=== PATIENT | male | born 1965 | race Caucasian/White ===

== ENCOUNTER 2025-06-30 13:31 | Outpatient (AMB) | payer BC, SELFPAY ==
--- OUTSIDE RECORDS SUMMARY | 2024-10-16 12:00 | XMS_ITS ---
Author Name [facility] Organization [facility] Address [address] [place] [id number] Care Team Providers Care Service Liaison Representative Name Role Phone BENITO MORRIS Primary Care [...] Name Patient's Relationship to Policy [employer] POLIS H NATIO NAL [facility] Dec 13, 2018 [id number] [employer] OTHER RELATIONSHIP Selected Encounter This section includes the information on record at [facility] for the Encounter. Date/Time Encounter Type Encounter Description Reason Provider Source Oct 16, 2024 04:00 PM TYMPANOMETRY AUDIOLOGY ICD-10-CM H90.3 Sensorineural hearing loss, bilateral AGUIAR,KIMBERL Y EFRAIN E Encounter Template Text not used by [place] Assessments - Encounter Diagnoses This section includes the primary and secondary diagnoses documented for the Encounter. Date/Time Primary/Secondary Diagnosis Diagnosis Name Provider Source Oct 16, 2024 04:23 PM PRIMARY Sensorineural hearing loss, bilateral AGUIAR[facility]KIM[facility]L [facility] [place] [facility] Oct 16, 2024 04:23 PM SECONDARY Tinnitus, bilateral AGUIAR,LISAL Y EFRAIN [facility] Plan of Treatment: Future Appointments (+ 6 months) and Future Tests (+/- 45 days) The Plan of Treatment section includes [facility] care activities for the [facility] This section includes future appointments and future orders which are active, pending or scheduled. Future Appointments This section includes appointments that were scheduled to occur 6 months from the date of the Encounter, up to a maximum of 20 appointments. The data comes from all [facility]. Appointment Date/Time Appointment Type Appointme nt Facility Name Oct 23, 2024 11:30 AM AMBULATORY - MEDICINE [facility] Nov 17, 2024 02:30 PM AMBULATORY MEDICINE [facility] Nov 17, 2024 03:00 PM AMBULATORY - MEDICINE [facility] Dec 30, 2024 03:00 PM AMBULATORY MEDICINE [facility] Active, Pending, and Scheduled Orders This section includes a listing of several types of active, pending, and scheduled orders, including clinic medications orders, diagnostic test orders, procedure orders and consult orders; where the start date of the order is 45 days before the date of the Encounter or 45 days after the date of theEncounter. The data comes from all [facility]. Test Date/Time Test Type Test Details Facility Name Nov 17, 2024 12:00 AM Laboratory - Chemistry Order HEMOGLOBIN A1C PANEL BLOOD (LAV-BLOOD) [facility] Nov 17, 2024 12:00 AM Laboratory - Chemistry Order URINALYSIS URINE [facility] Nov 17, 2024 12:00 AM Laboratory - Chemistry Order MICROALBUMIN CREATININE RATIO PANEL URINE (RANDOM) [facility] Nov 17, 2024 12:00 AM Laboratory - Chemistry Order TSH BLOOD (SST-SERUM) [facility] Nov 26, 2024 12:00 AM Laboratory - Chemistry Order OCCULT BLOOD FIT X1 SCREEN (MFP ONLY) STOOL FECES [facility] Lab Results: +/- 30 days of the encounter This section includes the Chemistry and Hematology Lab Results on record with [facility] for the patient. Radiology Reports and Pathology Reports are provided separately, in subsequent sections. Lab Results This section contains the Chemistry/Hematology Results that were resulted 30 days before or 30 daysafter the date of the Encounter. Date/Time Source Result Type Result - Unit Interpretation Reference Range Specimen Type Comment Nov 07, 2024 09:53 AM [facility] HIV 1&2 Ag/Ab SCREEN SERUM Specimen Type: SERUM No comment entered. Ordering Provider: NATHAN MORRIS Report Released Date/Time: Sep 29, 2024 04:02 PM Reporting Lab: [address] [address] Performing Lab: [address] [address] HIV 1&2 Ag/Ab SCREEN NON-REACTIVE Nonrea ctive Nov 07, 2024 09:53 AM [facility] LIPID PANEL FASTING SERUM Specimen Type: SERU M No comment entered. Ordering Provider: BENITO MORRIS Report Released Date/Time: Sep 29, 2024 04:02 PM Reporting Lab: [address] [address] Performing Lab: [address] [address] CHOLESTEROL 244 mg/dL H TRIGLYCERIDE 231 mg/dL H 0-150 LDL calculated 137 mg/dL H 0-129 CHOL/HDL 4.0 HDL CHOLESTEROL 61 mg/dL H 40-60 Nov 07, 2024 09:53 AM [facility] BASIC METABOLIC PANEL (fasting) SERUM Specime n Type: SERUM No comment entered. Ordering Provider: BENITO MORRIS Report Released Date/Time: Sep 29, 2024 04:02 PM Reporting Lab: [address] [address] Performing Lab: [address] [address] UREA NITROGEN 16 mg/dL 7-25 GLUCOSE 193 mg/dL H 65-100 SODIUM 138 mmol/L 135-145 POTASSIUM 4.4 mmol/L 3.5-5.0 CHLORIDE 104 mmol/L 100-110 CO2 21 meq/L 20-30 CREATININE, Serum 1.03 mg/dL 0.50-1.40 eGFR(CKD-EPI 2020) 83 mL/min >60 Nov 07, 2024 09:53 AM [facility] LIVER FUNCTION SERUM Specimen Type: SERUM No comment entered. Ordering Provider: BENITO MORRIS Report Released Date/Time: Sep 29, 2024 04:02 PM Reporting Lab: [facility] [address] [facility] [address] Performing Lab: [facility] [address] [facility] [address] PROTEIN,TOTAL 6.8 g/dL 6.0-8.3 ALBUMIN 4.0 g/dL 3.5-5.0 ALKALINE PHOSPHATASE 78 U/L 40-150 AST 27 U/L 5-34 ALT 35 U/L BILIRUBIN, TOTAL 0.6 mg/dL 0.2-1.2 Nov 07, 2024 09:53 AM [facility] URIC ACID SERUM Specimen Type: SERUM No comment entered. Ordering Provider: BENITO MORRIS Report Released Date/Time: Sep 29, 2024 04:02 PM Reporting Lab: [facility] [address] [facility] [address] Performing Lab: [facility] [address] [facility] [address] URIC ACID 4.6 mg/dL 3.5-7.2 Nov 07, 2024 09:53 AM [facility] HEPATITIS C ANTIBODY (HCV)-ARC SERUM Specimen Type: SERUM Comment: Hep C Ab: No HCV antibody detected. If recent infection is suspected or other evidence suggests HCV infection, consider HCV nucleic acid testing Ordering Provider: BENITO MORRIS Report Released Date/Time: Sep 29, 2024 04:02 PM Reporting Lab: [facility] [address] [facility] [address] Performing Lab: [address] [address] HEPATITIS C ANTIBODY NON-REACTIVE NON-RE ACTIVE Social History: Smoking Status (Most current) and Tobacco Use (All prior to encounter date) This section includes the most current, and the historical, smoking and tobacco- related health factors from the [place] facility where the Encounter took place. Current Smoking Status This section includes the most current smoking, or tobacco-related health factor, from the [place] facility where the Encounter took place. Date/Time Current Smoking Status Comment Facil ity Sep 23, 2024 08:28 AM [place]-TOBACCO FORMER USER [facility] Tobacco Use History This section includes a history of the smoking, or tobacco-related health factors, that were collected on or before the date of the Encounter. The data comes from the [place] facility where the Encounter took place. Date/Time Smoking Status/Tobacco Use Comment F acility Sep 23, 2024 08:28 AM NE-TOBACCO QUIT 15 YRS OR MORE [facility] Advance Directives: All historical and current Section Date Range: From patient's date of to the date document was created. This section includes ALL of a patient's completed or amended [place] Advance and Rescinded Directives. The entries below indicate that a directive exists for the patient, but an actual copy is not included with this document. The data comes from all [place] facilities. Date Advance Directives Provider Source Sep 29, 2024 ADVANCE DIRECTIVE ABDULKADIR ASTORGA [facility] Encounter Notes: All associated encounter notes This section contains the clinical notes associated to the Encounter. Date/Time Encounter Note(s) Provider Source Oct 16, 2024 07:47 AM AUDIOLOGY E & M NOTE: LOCAL TITLE: AUDIOLOGY CLINIC STANDARD TITLE: AUDIOLOGY E & M NOTE DATE OF NOTE: OCT 16, 2024@07:47 ENTRY DATE: OCT 16, 2024@07:47:17 AUTHOR: CISCO AGUIAR COSIGNER: URGENCY: STATUS: COMPLETED Dx CODE: H90.3-Sensorineural Hearing Loss, Bilateral APPOINTMENT TYPE: Hearing Evaluation BACKGROUND/HISTORY: was seen 10/16/24 for an initial hearing evaluation appointment. [place] reports he is establishing care at the [facility] and would like to have a baseline hearing test. He has known hearing loss and is service connected for hearing loss and tinnitus. He reports the tinnitus is constant and bilateral. He denies vertigo and a significant otologic history. 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 ASSESMENT: Results of today's testing are as follows: Otoscopy was WNL bilaterally. Normal tympanograms obtained bilaterally. Pure tone audiometric testing under headphones in the right ear revealed hearing WNL through 2 kHz, sloping to a moderately severe SNHL at 4 kHz and rising to WNL at 8 kHz. Testing in the left ear revealed hearing WNL through 3 kHz, sloping to a moderate SNHL at 4 kHz and rising to WNL at 8 kHz. SRT WORD RECOGNITION (Recorded [place] CNC 1/2 Word List) Right 5dBHL 96% @ 60dBHL/35dBm Left 5dBHL 96% @ 60dBHL/35dBm was advised he is not considered a hearing aid candidate at this time. EDUCATION/COUNSELING: The patient was counseled re: today's hearing test results. He demonstrated satisfactory understanding of the education and plan, and was given the opportunity to ask questions throughout today's visit. PLAN: 1. Hearing re-evaluation in 3 years, or sooner if change in hearing occurs. * Patient Education Education provided on the following topics: Hearing test results Education provided to: P Response to Education: VU Bhakta Patient P Family F Significant Other SO Verbalizes Understanding VU Returns Demonstration RD Performs Independently PI Lacks Comprehension LC Refused Education RE Not Applicable NA * /sam/ CISCO AGUIAR STAFF DISABILITY ADVOCATE Signed: 10/16/2024 16:24 CISCO AGUIAR CNTRL [facility]
--- NOTE | 2025-06-30 13:42 | A.OFFVIS_ITS ---
Intake Visit Reasons: Elevated PSA 7.65 Intake Note: New Patient is present for ELEVATED PSA Urology Rx:Allopurinol Blood Thinners:none Imaging completed: none Labs done 05/26/25: PSA 7.65 PVR 79 mls Dye Winch Operator Required: No Accompanied by: Self / Same As Patient Office Procedures Post Void Residual Post Residual Void Post Void Residual (PVR): [id number] Void Residual by ultrasound Results AMB Urinalysis, Automated UA Leukoctes 0 Santy/uL Last Edit by AZ Degroot on 06/30/25 13:57 UA Nitrite Negative Last Edit by Marilynn Anthony CCM on 06/30/25 13:57 UA Urobilinogen 0.2 mg/dL Last Edit by AZ Degroot on 06/30/25 13:5 7 UA Protein 0 mg/dL Last Edit by Marilynn Anthony CCM on 06/30/25 13:57 UA pH 6.0 Last Edit by Marilynn Anthony CCM on 06/30/25 13:57 UA Blood 0 Enoc/uL Last Edit by Marilynn Anthony CCM on 06/30/25 13:57 UA Specific Plains 1.010 Last Edit by Marilynn Anthony CCM on 06/30/25 13: 57 UA Ketone Negative Last Edit by AZ Degroot on 06/30/25 13:57 UA Bilirubin 0 mg/dL Last Edit by Marilynn Anthony CCM on 06/30/25 13:57 UA Glucose 0 mg/dL Last Edit by Marilynn Anthony [facility] on 06/30/25 13:57 Results Reviewed Results Reviewed: Laboratory Last Values Urine pH (Auto) 6.0 06/30/25 13:56 Specific Plains (Auto) 1.010 06/30/25 13:56 Urine Protein (Auto) 0 mg/dL 06/30/25 13:56 Glucose (UA)(Auto) 0 mg/dL 06/30/25 13:56 Urine Ketones (Auto) Negative 06/30/25 13:56 Urine Blood (Auto) 0 Enoc/uL 06/30/25 13:56 Urine Nitrite (Auto) Negative 06/30/25 13:56 Urine Bilirubin (Auto) 0 mg/dL 06/30/25 13:56 Urine Urobilinogen (Auto) 0.2 mg/dL 06/30/25 13:56 Leukocyte Esterase (Auto) 0 Santy/uL 06/30/25 13:56 Assessment & Plan Assessment & Plan (1) Elevated PSA: Code(s): R97.20 - Elevated prostate specific antigen [PSA] Category: Medical Orders: Orders AMB Post Void Residual by ultrasound Today R97.20 - Elevated prostate specific antigen [PSA] AMB Urinalysis Automated Today Z13.9 - Encounter for screening, unspecified Medications: New levofloxacin take 1 tablet day before procedure, 1 tablet day of procedure and 1 tablet day after procedure 500 mg PO DAILY 3 tabs 0RF 3 days Coding Diagnoses Elevated PSA R97.20 CPT Codes Post Residual Void - PVR CPT Code: 22822-Kkbg Void Residual by ultrasound ([id number])
--- OUTSIDE RECORDS SUMMARY | 2025-06-30 14:45 | XMS_ITS | Clinical Summary ---
Author Organization [facility] Address [address] [address] Phone Care Team Providers Care Facing Cutting Machine Operator Name Role Phone Olivier Moss MD Primary Care Provider [phone] Allergies Active Allergy Reactions Criticality Noted Date Comments Lisinopril Cough 09/23/2021 Medications verapamiL (VERELAN) 360 MG 24 hr capsule Take 360 mg by mouth nightly at bedtime. 06/24/2021 Active olmesartan (BENICAR) 20 mg tablet Take 20 mg by mouth daily. 06/11/2021 Active citalopram (CELEXA) 20 MG tablet Take 20 mg by mouth daily. 07/06/2021 Active allopurinol (ZYLOPRIM) 300 MG tablet Take 300 mg by mouth daily. 07/06/2021 Active celecoxib (CELEBREX) 100 MG capsule Take 1 capsule (100 mg total) by mouth 2 (two) times a day for 14 days. 28 capsule 01/03/2022 Active aspirin 81 MG EC tablet Take 1 tablet (81 mg total) by mouth 2 (two) times a day for 28 days. 56 tablet 01/03/2022 Active acetaminophen (TYLENOL) 500 MG tablet Take 1,000 mg by mouth every 8 (eight) hours as needed for fever or pain (specific location in comments). 01/04/2022 Active hydroCHLOROthia zide (HYDRODIURIL) 12.5 MG tablet Take 1 tablet by mouth daily. 01/17/2022 Active Active Problems Problem Noted Date Diagnosed Date Primary osteoarthritis of left knee Social History Tobacco Use Types Packs/Day Years Used Date Smoking Tobacco: Former Smokeless Tobacco: Never Comments:quit 1992 Alcohol Use Standard Drinks/Week Comments Yes 12 (1 standard drink = 0.6 oz pu re alcohol) Education Answer Date Recorded Are you interested in more education? Not on kaia e 03/09/2023 Are you concerned about learning? Not on file 03/09/2023 No 03/09/2023 No 03/09/2023 Digital Access Answer Date Recorded No 04/07/2023 No 04/07/2023 No 04/07/2023 Reliable internet access at home? Not on file 04/07/2023 Device with a working camera? Not on file Sex and Gender Information Value Date Recorded Sex Assigned at Not on file Legal Sex Male 9:44 PM EDT Gender Identity Not on file Sexual Orientation Not on file Last Filed Vital Signs Vital Sign Reading Time Taken Comments Blood Pressure 138/88 01/13/2022 11:56 AM EST Pulse 88 01/13/2022 11:56 AM EST Temperature 36.8 C (98.2 F) 01/13/2022 11:56 AM EST Respiratory Rate 16 01/07/2022 9:57 AM EST Oxygen Saturation 98% 01/13/2022 11:56 AM EST Inhaled Oxygen Concentration - - Weight 104.8 kg (231 lb) 01/02/2022 10:27 AM EST Height 175.3 cm (5' 9 ) 01/02/2022 10:27 AM EST Body Mass Index 34.11 01/02/2022 10:27 AM EST Plan of Treatment Health Maintenance Due Date Last Done Comments Adult Td,Tdap Booster 1963 LIPID PANEL 1963 DEPRESSION SCREENING 1975 SMOKING Hx and SMOKELESS TOBACCO SCREENING 1976 HEPATITIS C SCREENING 1981 HIV ONE-TIME SCREENING (18-6 5 YEARS) 1981 COLOGUARD 2008 COLONOSCOPY 2008 COLORECTAL CANCER SCREENING 2008 FIT TEST 2008 FOBT 2008 SIGMOIDOSCOPY 2008 VIRTUAL COLONOSCOPY 2008 PNEUMOCOCCAL VACCINES (50+ years) (1 of 1 - PCV) 2013 ZOSTER VACCINES (2 of 2) 04/09/2021 02/12/2021 CREATININE LEVEL 11/22/2022 11/22/2021 POTASSIUM LEVEL 11/22/2022 11/22/2021 COVID-19 VACCINE (3 - 2023-2 5 season) 2024 03/24/2021, 02/24/2021 RSV VACCINE (1 - 1-dose 75+ series) 2038 HEPATITIS A VACCINES Aged Out No long er eligible based on patient's age to complete this topic HIB VACCINES Aged Out No longer eligi ble based on patient's age to complete this topic MENINGOCOCCAL VACCINES (ACWY) Aged Out No longer eligible based on patient's age to complete this topic MENINGOCOCCAL VACCINES (B) Aged Out N o longer eligible based on patient's age to complete this topic Medical Devices Implanted Type Area Companion Device Identifier Shelf Expiration Date Model / Serial / Lot Tray Tibial Knee [place] Switchback Aoy Lt Medial Size D - [id number] Implanted:Qty: 1 on 01/03/2022 by Markel Rodriguez MD at [facility] STANDARD Left: Knee [employer] 02/21/2031 [id number] / / [id number] Knee Bearing Medium Size 4 Component Tibial [place] Polyethylene Meniscal Anatomic Left - [id number] Implanted:Qty: 1 on 01/03/2022 by Markel Rodriguez MD at [facility] STANDARD Left: Knee [employer] 02/28/2026 [id number] / / [id number] Bone Cement Antibiotic Refobacin - [id number] Implanted:Qty: 1 on 01/03/2022 by Markel Rodriguez MD at [facility] Left: Knee DORIAN / [employer] BRISTOL SQUIBB 12/12/2023 [id number] / / [id number] Knee Implant Medium Component Femoral [place] Switchback Alloy Twin Pegged Cemented Partial - [id number] Implanted:Qty: 1 on 01/03/2022 by Markel Rodriguez MD at [facility] Left: Knee [employer] 04/16/2030 [id number] / / [id number] Procedures Procedure Name Priority Date/Time Associated Diagnosis Comments BASIC METABOLIC PANEL Routine 11/22/2021 7:08 AM EST Primary localized osteoarthrosis of left lower leg from Last 3 Months or Most Recently Relevant to Health Maintenance Results * (ABNORMAL) Basic metabolic panel (11/22/2021 7:08 AM EST) SODIUM 138 133 - 146 mmol/L [facility] CHLORIDE 100 96 - 108 mmol/L [facility] POTASSIUM 4.6 3.3 - 5.1 mmol/L [facility] Comment:Specimen slightly he molyzed, result may be falsely elevated. CO2 25 21 - 35 mmol/L [facility] BUN 18 6 - 19 mg/dL [facility] CREATININE 1.00 0.5 - 1.5 mg/dL [facility] GLUCOSE 106(H) 70 - 99 mg/dL [facility] CALCIUM 9.7 8.4 - 10.3 mg/dL [facility] EGFR 87 >59 mL/min/1.7 3m2 [facility] Comment:Estimated glomerular filtration rate calculated using the CKD-EPI refit equation. ANION GAP 18 10 - 20 mmol/L [facility] Blood 11/22/2021 7:08 AM EST 11/22/2021 7:11 AM EST us Markel Rodriguez MD LAB BLOOD ORDERABLES [facility] Organization Address City/State/ZIP Co de Phone Number [facility] [address] [place] [address] from Last 3 Months or Most Recently Relevant to Health Maintenance [facility] POS HMO POS HMO POS HMO POS HMO POS HMO POS HMO POS HMO POS Care Teams Facing Cutting Machine Operator Relationship Specialty Start Date End Date Olivier Moss MD [email or web address] PCP - General Family Medicine 09/26/21 Additional Source Comments The information contained in this document represents components of the legal health record. It is not the complete legal health record.[facility]
--- OUTSIDE RECORDS SUMMARY | 2025-06-30 14:45 | XMS_ITS ---
Author Name [facility] Organization Unknown Encounters Encounter Type Encounter Reason Primary Diagnosis Location Date Ambulatory Acute upper resp iratory infection, unspecified [facility] 11/09/2021 Care Team Organization Name Specialty Phone Email Start Date End [facility] 202006/30/[facility]24 [facility] 202011/09/2021
--- OUTSIDE RECORDS SUMMARY | 2025-06-30 14:46 | XMS_ITS | Clinical Summary ---
Author Organization [facility] Address [address] [place] [address] Care Team Providers Care Neurodiagnostic Tech Name Role Phone Brigido Mossald Primary Care Provider [phone] Allergies No known active allergies Medications allopurinoL (ZYLOPRIM) 300 mg tablet 11/01/2021 Active citalopram (celeXA) 20 mg tablet 11/01/2021 Active olmesartan (BENICAR) 20 mg tablet 10/18/2021 Active verapamil PM (VERELAN PM) 360 mg 24 hr capsule 10/20/2021 Ac tive Active Problems No known active problems Social History Tobacco Use Types Packs/Day Years Used Date Smoking Tobacco: Never Smokeless Tobacco: Never Sex and Gender Information Value Date Recorded Sex Assigned at Not on file Legal Sex Male 10:18 AM EST Gender Identity Not on file Sexual Orientation Not on file Plan of Treatment Health Maintenance Due Date Last Done Comments CT Colonography 1963 Colonoscopy 1963 Colorectal Cancer Screening 1963 FIT-DNA (Cologuard) 1963 FIT 1963 FOBT 1963 Flex Sigmoidoscopy - 5y 1963 HIV Screening 1963 DTaP,Tdap,and Td Vaccines (1 - Tdap) 1981 Pneumococcal Vaccine, 50+ Ye ars (1 of 1 - PCV) 2013 Zoster Vaccines (1 of 2) 2013 COVID-19 Vaccine ( - 2023-2 5 season) 2024 Influenza Vaccine (#1) 2025 HPV Vaccines Aged Out No longer eligi ble based on patient's age to complete this topic Hepatitis A Vaccines Aged Out No long er eligible based on patient's age to complete this topic MMR Vaccines Aged Out No longer eligi ble based on patient's age to complete this topic Meningococcal Vaccine Aged Out No araceli oly eligible based on patient's age to complete this topic [place] [address] [facility] Address: [address] [address] Care Teams Neurodiagnostic Tech Relationship Specialty Start Date End Date Olivier Moss [address] [place] [phone] PCP - General Family Medicine 11/09/21
== END 2025-06-30 14:51 | disposition home or self-care (01) ==
LOC: HO.HUSH 13:31
PROVIDERS: PCP Family Medicine; Visit Provider Urology
DX: Z13.9 Encounter for screening, unspecified (principal)

== ENCOUNTER → 2025-06-30 13:31 | Outpatient (BNVA) | payer BC, SELFPAY | PROVIDERS: PCP Family Medicine; Visit Provider Urology | DX: R97.20 Elevated prostate specific antigen [PSA] (principal) | CPT/HCPCS: 51798; 81003 ==

== ENCOUNTER 2025-07-14 07:36 | Outpatient (REF) | payer BC, SELFPAY ==
--- OUTSIDE RECORDS SUMMARY | 2024-09-19 12:31 | XMS_ITS | Encounter Summary ---
Author Name [facility] Organization [facility] Address [address] [place] [id number] Care Team Providers Care Director Of Product Design Name Role Phone BENITO MORRIS Primary Care Provider Unavail able Insurance Providers: All historical and current Section Date Range: From patient's date of to the date document was created. This section includes the names of all active insurance providers for the patient. Insurance Provider Type of Coverage Plan Name Start of Policy Coverage End of Policy Coverage Group Number Member ID Insurance Provider's Telephone Number Policy Morris's Name Patient's Relationship to Policy Morris [employer] [place] [employer] POLIS H NATIO NAL [facility] Dec 13, 2018 [id number] [phone] [place] [place] OTHER RELATIONSHIP Selected Encounter This section includes the information on record at [place] for the Encounter. Date/Time Encounter Type Encounter Description Reason Provider Source Sep 19, 2024 04:31 PM CASE MANAGEMENT ADMIN PAT ACTIVTIES (MASNONCT) ICD-10-CM Z71.89 Other specified counseling WILLIAMS BARRIENT[facility] Encounter Template Text not used by [place] Assessments - Encounter Diagnoses This section includes the primary and secondary diagnoses documented for the Encounter. Date/Time Primary/Secondary Diagnosis Diagnosis Name Provider Source Sep 19, 2024 04:31 PM PRIMARY Other specified counseling WILLIAMS BARRIENTOS [facility] Plan of Treatment: Future Appointments (+ 6 months) and Future Tests (+/- 45 days) The Plan of Treatment section includes future care activities for the patient from all [place] [facility] This section includes future appointments and future orders which are active, pending or scheduled. Future Appointments This section includes appointments that were scheduled to occur 6 months from the date of the Encounter, up to a maximum of 20 appointments. The data comes from all [facility] facilities. Appointment Date/Time Appointment Type Appointme nt Facility Name Sep 29, 2024 03:00 PM AMBULATORY - MEDICINE [facility] Oct 16, 2024 04:00 PM [facility] [place] [facility] [place] [facility] Oct 23, 2024 11:30 AM [facility]IC[facility] Nov 17, 2024 02:30 PM [facility]UL[facility]ORY [facility]ICINE [facility] Nov 17, 2024 03:00 PM [facility] MED[facility] Dec 30, 2024 03:00 [facility] Advance Directives: All historical and current Section Date Range: From patient's date of to the date document was created. This section includes ALL of a patient's completed or amended [place] Advance and Rescinded Directives. The entries below indicate that a directive exists for the patient, but an actual copy is not included with this document. The data comes from all [facility]. Date Advance Directives Provider Source Sep 29, 2024 ADVANCE DIRECTIVE ABDULKADIR ASTORGA [facility] Encounter Notes: All associated encounter notes This section contains the clinical notes associated to the Encounter. Date/Time Encounter Note(s) Provider Source Sep 19, 2024 04:32 PM OEF/OIF NOTE: LOCAL TITLE: OEF/OIF TRANSITION PATIENT ADVOCATE NOTE - TELEPHON STANDARD TITLE: OEF/OIF NOTE DATE OF NOTE: SEP 19, 2024@16:32 ENTRY DATE: SEP 19, 2024@16:32:48 AUTHOR: WILLIAMS BARRIENTOS COSIGNER: ALEXA BAPTISTE URGENCY: STATUS: COMPLETED NOTE: The OEF/OIF/OND Transition Patient Advocate (TPA) is a non-clinical member of the OEF/OIF/OND Care Management Team. Type of Contact: Phone call Contact was with: Appointments: Contacted [facility] to help schedule him for a PCP appointment. This contacted because he was upset because he states that he was told that [facility] would [facility] but states no one ever called him. [place] was already enrolled and is in Priority Group 3. I explained what that meant and asked him if he would like to be setup for a PCP appointment. He replied that he would like that. I reached out to Chandler Deutsch to assist with this. The knows that he can call me if someone doesn't reach out to him by next week. /sam/ WILLIAMS BARRIENTOS Transitional Patient Advocate Signed: 09/19/2024 16:38 /sam/ SHY Hunt LICENSED CLINICAL INDIGO VAT TENDER CLOTH Cosigned: 09/23/2024 08:27 WILLIAMS BARRIENTOS [place] [facility]
--- OUTSIDE RECORDS SUMMARY | 2024-09-29 11:00 | XMS_ITS ---
Author Name [facility] Organization [facility] [place] Address [address] [place] [id number] Care Team Providers Care Application Integration Engineer Name Role Phone BENITO MORRIS Primary Care [...] Name Patient's Relationship to Policy Morris [employer] [place] [employer]IGH DEDUCTIBL E HEALTH PLAN POLIS H NATIO NAL [facility] Dec 13, 2018 [id number] [facility] OTHER RELATIONSHIP Selected Encounter This section includes the information on record at [place] for the Encounter. Date/Time Encounter Type Encounter Description Reason Provider Source Sep 29, 2024 03:00 PM OFFICE O/P NEW MOD 45 MIN PRIMARY CARE/MEDICINE ICD-10-CM M10.9 Gout, unspecified TUSHAR MORRIS JOSÉ ANTONIO F IHE Encounter Template Text not used by [place] Assessments - Encounter Diagnoses This section includes the primary and secondary diagnoses documented for the Encounter. Date/Time Primary/Secondary Diagnosis Diagnosis Name Provider Source Dec 27, 2024 07:58 AM PRIMARY Gout, unspecified JAIRON MORRIS PARDEEP F [facility] [place] [facility] Dec 27, 2024 07:58 AM SECONDARY Contact with and exposure to other hazardous substances JAIRON MORRIS [facility] [place] [facility] Dec 27, 2024 07:58 AM SECONDARY Essential (primary) hypertension JAIRON MORRIS [facility] [place] [facility] Dec 27, 2024 07:58 AM SECONDARY Family history of malignant neoplasm of digestive organs JAIRON MORRIS [facility] [place] [facility] Dec 27, 2024 07:58 AM SECONDARY Family history of malignant neoplasm of organs or systems JAIRON MORRIS [facility] [place] [facility] Dec 27, 2024 07:58 AM SECONDARY Irritability and anger JAIRON MORRIS [facility] [place] [facility] Dec 27, 2024 07:58 AM SECONDARY Sleep apnea, unspecified JAIRON MORRIS [facility] [place] [facility] Plan of Treatment: Future Appointments (+ 6 months) and Future Tests (+/- 45 days) The Plan of Treatment section includes future care activities for the [facility] This section includes future appointments and future orders which are active, pending or scheduled. Future Appointments This section includes appointments that were scheduled to occur 6 months from the date of the Encounter, up to a maximum of 20 appointments. The data comes from all [place] treatment facilities. Appointment Date/Time Appointment Type Appointme nt Facility Name Oct 16, 2024 04:00 PM AMBULATORY - REHAB MEDICIN E [facility] [place] [facility] Oct 23, 2024 11:30 AM AMBULATORY - MEDICINE [facility] [place] [facility] Nov 17, 2024 02:30 PM AMBULATORY - MEDICINE [facility] [place] [facility] Nov 17, 2024 03:00 PM AMBULATORY - MEDICINE [facility] [place] [facility] Dec 30, 2024 03:00 PM AMBULATORY - MEDICINE [facility] [place] [facility] Vital Signs: All taken on the encounter date This section contains inpatient and outpatient Vital Signs collected on the date of the Encounter. Date/Time Temperature Pulse Blood Pressure Respiratory Rate SP02 Pain Height Weight Body Mass Index Source Sep 29, 2024 02:33 PM 98.6 77 140/87 20 97 0 69 244 36 [facility] Social History: Smoking Status (Most current) and Tobacco Use (All prior to encounter date) This section includes the most current, and the historical, smoking and tobacco- related health factors from the [facility] facility where the Encounter took place. Current Smoking Status This section includes the most current smoking, or tobacco-related health factor, from the [place] facility where the Encounter took place. Date/Time Current Smoking Status Comment Facil ity Sep 23, 2024 08:28 AM [place]-TOBACCO FORMER USER [facility] Tobacco Use History This section includes a history of the smoking, or tobacco-related health factors, that were collected on or before the date of the Encounter. The data comes from the [facility] facility where the Encounter took place. Date/Time Smoking Status/Tobacco Use Comment F acility Sep 23, 2024 08:28 AM UT-TOBACCO QUIT 15 YRS OR MORE [facility] Advance Directives: All historical and current Section Date Range: From patient's date of to the date document was created. This section includes ALL of a patient's completed or amended [place] Advance and Rescinded Directives. The entries below indicate that a directive exists for the patient, but an actual copy is not included with this document. The data comes from all [place] facilities. Date Advance Directives Provider Source Sep 29, 2024 ADVANCE DIRECTIVE ABDULKADIR ASTORGA [facility] Encounter Notes: All associated encounter notes This section contains the clinical notes associated to the Encounter. Date/Time Encounter Note(s) Provider Source Nov 09, 2024 07:17 AM ADDENDUM: LOCAL TITLE: Addendum STANDARD TITLE: ADDENDUM DATE OF NOTE: NOV 09, 2024@07:17:06 ENTRY DATE: NOV 09, 2024@07:17:08 AUTHOR: BENITO MORRIS COSIGNER: URGENCY: STATUS: COMPLETED Plesae ask him in for labs and bp check when he comes to see the snout puller on 11/17. /sam/ Benito Morris PA-C STAFF PHYSICIAN FISCAL ANALYST Signed: 11/09/2024 07:18 Receipt Acknowledged By: 11/17/2024 09:36 /es/ FRANKY THAKUR GLENDA --- Original Document --- 09/29/24 10-10M/PHYSICIAN/MID-LEVEL (NON-TEMPLATE): CC: 59 year old MALE here to establish pcp......amenable to Co- management. Today, his CC is.........To get established, as he is pending losing his GF s health insurance when she retires in about two years. He reports that his verapamil is expensive. I suggest he raman it at [facility] withOUT his insurance nad consider generic. Other meds are cheap and he has a copay here, so we are not pressed for time. Nursing notes reviewed and appreciated. Drug allergies: Patient has answered NKA 1. AllopurinoL (ZYLOPRIM) 300 mg tablet Daily 11/01/2021 Active 2. Citalopram (celeXA) 20 mg tablet by mouth Daily11/01/2021 Active 3. Olmesartan (BENICAR) 20 mg tablet by mouth Daily 10/18/2021 Active 4. Verapamil PM (VERELAN PM) 360 mg 24 hr capsule 10/20/2021 Active ===== Vet says that he has the following Medical Hx: 1. SARS-CoV-2 TMA ([place])-Acute Upper Resp Infection Detected (A)-11/09/21 2. L knee partial replacement surgery 3. Back Surgery L4-L5- surgery 4. [facility]- [facility] 5. Allergic Rhinitis- Pollen, grass, trees ===== León says that he has the following community Providers: 1. [facility] Work Place: [address] [place] [phone] Tel: [facility] OFF 2. 11/09/2021 10:50 AM EST Office Visit [facility] [address] [place] [address] Eriberto Rousseau, Acute upper respiratory infection (Primary Dx) Vision care: Last exam: A few yeasrs, He will make an apt here. Dental care: Last exam:...Hygiene discussed. Low cost local alternatives for dental care discussed. Hearing:Conservation discussed. ROS: Denies rashes, chest pain, sob/brown. No dizziness, nausea, vomiting or diarrhea. No blood in stool or urine. Pt has been eating, drinking, voiding and stooling in his normal fashion. Denies falls or excessive fall hazards in the home. Past Surgical History:tonsils, left knee replacement, partial, back L4/5. left hand tendon repair. Colonoscopy:2 age 48 and 53. EGD:Yes, reflux otc omeprazole, discussed at length. PFSH: FH: Noncontributory (patient denies FH of Glaucoma, BRCA, Prostate or Colon cancer).father melanoma,just saw Derm, [facility] derm. History: sancho Sethiist [age]. 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 Living arrangements:house, girlfriend TINNITUS 10% [place] IMPAIRED HEARING 0% [place] SERVICE CONNECTED % - 10 Access to Rxs, eye, ear and dental care as well as the question 'what do I do if I get sick between visits' discussed. PE: General: Pt is appropriately dressed, good eye contact. 98.6 F [37.0 C] (09/29/2024 14:33) 77 (09/29/2024 14:33) 20 (09/29/2024 14:33) 140/87 (09/29/2024 14:33) 0 (09/29/2024 14:33) 69 in [175.3 cm] (09/29/2024 14:33) 244 lb [110.68 kg] (09/29/2024 14:33) BMI: 36.1 TARGET HR: 85%=135 70%=111 Neuro: aox3, good historian, mood/affect appropriate, Cor; RRR, nl s1,2 without murmurs, no carotid bruits, no LE edema, cyanosis, clubbing. LUNGS: Clear to auscultation bilaterally. Extremities: full active range of motion. Toxic Exposure Screening: The /caregiver was asked if they believe the [place] experienced any toxic exposure(s), such as Airborne Hazards and Open Burn Pit, Harper War related exposures, Agent [place], Radiation, contaminated water at [place] or other such exposures, while serving in the Armed Forces. [place]/caregiver believes the [place] was exposed to the following while serving in the Armed Forces: Radiation: [place]/caregiver was made aware of educational resources that includes information on the Registry Program, presumptive conditions and how to file a claim. Printed information was offered and provided if desired. Other exposures: Comment: abestos and firefighting foam. /caregiver was made aware of educational resources and printed information was offered and provided if desired. /caregiver has no health or medical concerns related to their concern of environmental exposure. Registry Questions /caregiver was informed of local point of contact. Contact information for local resources: Benefits/Claim for Disability Compensation Questions:National VBA [facility] Enrollment: [facility] Eligibility direct dialed at [phone] Registry: [facility] Health Coordinator ext [phone] The following connections were provided to the /caregiver: Consult/Referral to Toxic Exposure Screening (VENESSA) navigator. RHS Screen: RHS Screen Environmental Check Upon inquiry, the individual reports that the environment is safe to proceed. Informed Consent to Screen and Document The individual consents to proceed with screening. The individual consents to documentation of responses. PRIMARY SCREEN: In the past 12 months, how often did a current or former intimate partner (e.g., boyfriend, girlfriend, , , sexual partner): 1. Scream or curse at you Never 2. Insult or talk down to you Never 3. Threaten you with harm Never 4. Physically hurt you Never 5. Force or pressure you to have sexual contact against your will, or when you were unable to say no Never The HITS tool (items 1-4 above) is [place] copyright protected by Jerry Hurd MD, and the user has full rights to use it throughout the [place] system. PRIMARY SCREEN RESULT: The Primary Screen is NEGATIVE. The individual answered never to all forms of IPV above (i.e., answered never to all 5 items) The individual accepts education and/or resources: Other: EDUCATION: Other: Hepatitis C Testing: Patient has given verbal consent for HCV antibody testing. An HCV lab test has been ordered - see orders tab. HIV Screening: Patient has given verbal consent for HIV antibody testing, and the risks, benefits, and alternatives to HIV testing have been discussed. An order for an HIV Antibody test has been entered - see orders tab. Lipid Screening: Lipid profile ordered at this encounter. Please enter a nonva medlist as above, request [facility]/Dr Fitch including recent note, Sleep study and colonoscpy as well as [place] [facility] records for FH of melanoma. /sam/ Benito Morris PA-C STAFF PHYSICIAN FISCAL ANALYST Signed: 09/29/2024 16:01 Receipt Acknowledged By: 10/01/2024 08:54 /es/ ROBLES FIGUEROA CHECK PILOT ROBLES FIGUEROA LPN 11/17/2024 ADDENDUM STATUS: UNSIGNED You may not VIEW this UNSIGNED Addendum. BENITO MORRIS [facility] [place] [facility] Sep 29, 2024 02:38 PM H & P NOTE: LOCAL TITLE: 10-10M/PHYSICIAN/MID-LEVEL (NON-TEMPLATE) STANDARD TITLE: H & P NOTE DATE OF NOTE: SEP 29, 2024@14:38 ENTRY DATE: SEP 29, 2024@14:38:52 AUTHOR: BENITO MORRIS EXP COSIGNER: URGENCY: STATUS: COMPLETED 10-10M/PHYSICIAN/MID-LEVEL (NON-TEMPLATE) Has ADDENDA CC: 59 year old MALE here to establish pcp......amenable to Co- management. Today, his CC is.........To get established, as he is pending losing his GF s health insurance when she retires in about two years. He reports that his verapamil is expensive. I suggest he raman it [facility] withOUT his insurance nad consider generic. Other meds are cheap and he has a copay here, so we are not pressed for time. Nursing notes reviewed and appreciated. Drug allergies: Patient has answered NKA 1. AllopurinoL (ZYLOPRIM) 300 mg tablet Daily 11/01/2021 Active 2. Citalopram (celeXA) 20 mg tablet by mouth Daily11/01/2021 Active 3. Olmesartan (BENICAR) 20 mg tablet by mouth Daily 10/18/2021 Active 4. Verapamil PM (VERELAN PM) 360 mg 24 hr capsule 10/20/2021 Active ===== Vet says that he has the following Medical Hx: 1. SARS-CoV-2 TMA ([place])-Acute Upper Resp Infection Detected (A)-11/09/21 2. L knee partial replacement surgery 3. Back Surgery L4-L5- surgery 4. Sleep apnea- CPAP [facility]ru [facility]. 5. Allergic Rhinitis- Pollen, grass, trees ===== Vet says that he has the following community Providers: 1. [facility] Work Place: [address] [place] [phone] Tel: [facility] OFF 2. 11/09/2021 10:50 AM EST Office Visit [facility] [address] [place] [address] Eriberto Rousseau DO Acute upper respiratory infection (Primary Dx) Vision care: Last exam: A few yeasrs, He will make an apt here. Dental care: Last exam:...Hygiene discussed. Low cost local alternatives for dental care discussed. Hearing:Conservation discussed. ROS: Denies rashes, chest pain, sob/brown. No dizziness, nausea, vomiting or diarrhea. No blood in stool or urine. Pt has been eating, drinking, voiding and stooling in his normal fashion. Denies falls or excessive fall hazards in the home. Past Surgical History:tonsils, left knee replacement, partial, back L4/5. left hand tendon repair. Colonoscopy:2 age 48 and 53. EGD:Yes, reflux otc omeprazole, discussed at length. PFSH: FH: Noncontributory (patient denies FH of Glaucoma, BRCA, Prostate or Colon cancer).father melanoma,[place]erm[place] [facility]. 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 PE: General: Pt is appropriately dressed, good eye contact. 98.6 F [37.0 C] (09/29/2024 14:33) 77 (09/29/2024 14:33) 20 (09/29/2024 14:33) 140/87 (09/29/2024 14:33) 0 (09/29/2024 14:33) 69 in [175.3 cm] (09/29/2024 14:33) 244 lb [110.68 kg] (09/29/2024 14:33) BMI: 36.1 TARGET HR: 85%=135 70%=111 Neuro: aox3, good historian, mood/affect appropriate, Cor; RRR, nl s1,2 without murmurs, no carotid bruits, no LE edema, cyanosis, clubbing. LUNGS: Clear to auscultation bilaterally. Extremities: full active range of motion. Toxic Exposure Screening: The /caregiver was asked if they believe the [place] experienced any toxic exposure(s), such as Airborne Hazards and Open Burn Pit, [place] War related exposures, Agent [place], Radiation, contaminated water at [place] or other such exposures, while serving in the Armed Forces. [place]/caregiver believes the was exposed to the following while serving in the Armed Forces: Radiation: /caregiver was made aware of educational resources that includes information on the Registry Program, presumptive conditions and how to file a claim. Printed information was offered and provided if desired. Other exposures: Comment: abestos and firefighting foam. [place]/caregiver was made aware of educational resources and printed information was offered and provided if desired. /caregiver has no health or medical concerns related to their concern of environmental exposure. Registry Questions [place]/caregiver was informed of local point of contact. Contact information for local resources: Benefits/Claim for Disability Compensation Questions:National VBA [facility] Enrollment: [facility] Eligibility direct dialed at [phone] Registry: [facility] Coordinator ext [phone] The following connections were provided to the /caregiver: Consult/Referral to Toxic Exposure Screening (VENESSA) navigator. RHS Screen: RHS Screen Environmental Check Upon inquiry, the individual reports that the environment is safe to proceed. Informed Consent to Screen and Document The individual consents to proceed with screening. The individual consents to documentation of responses. PRIMARY SCREEN: In the past 12 months, how often did a current or former intimate partner (e.g., boyfriend, girlfriend, , , sexual partner): 1. Scream or curse at you Never 2. Insult or talk down to you Never 3. Threaten you with harm Never 4. Physically hurt you Never 5. Force or pressure you to have sexual contact against your will, or when you were unable to say no Never The HITS tool (items 1-4 above) is [place] copyright protected by Jerry Hurd MD, and the user has full rights to use it throughout the [place] system. PRIMARY SCREEN RESULT: The Primary Screen is NEGATIVE. The individual answered never to all forms of IPV above (i.e., answered never to all 5 items) The individual accepts education and/or resources: Other: EDUCATION: Other: Hepatitis C Testing: Patient has given verbal consent for HCV antibody testing. An HCV lab test has been ordered - see orders tab. HIV Screening: Patient has given verbal consent for HIV antibody testing, and the risks, benefits, and alternatives to HIV testing have been discussed. An order for an HIV Antibody test has been entered - see orders tab. Lipid Screening: Lipid profile ordered at this encounter. Please enter a nonva medlist as above, request [facility]/Dr Fitch including recent note, Sleep study and colonoscpy as well as [place] [facility] records for FH of melanoma. /sam/ Benito Morris PA-C STAFF PHYSICIAN FISCAL ANALYST Signed: 09/29/2024 16:01 Receipt Acknowledged By: 10/01/2024 08:54 /sam/ ROBLES FIGUEROA LPN 11/09/2024 ADDENDUM STATUS: COMPLETED Plesae ask him in for labs and bp check when he comes to see the snout puller on 11/17. /sam/ Benito Morris PA-C STAFF PHYSICIAN FISCAL ANALYST Signed: 11/09/2024 07:18 Receipt Acknowledged By: 11/17/2024 09:36 /sam/ FRANKY DOSHI 11/17/2024 ADDENDUM STATUS: COMPLETED AMSA called on the phone. Call was not answer, message was left for callback on voicemail. /sam/ FRANKY DOSHI Signed: 11/17/2024 09:37 BENITO MORRIS [facility] [place] [facility] Sep 29, 2024 02:37 PM PREVENTIVE MEDICINE NURSING NOTE: LOCAL TITLE: CLINICAL REMINDERS/NURSING STANDARD TITLE: PREVENTIVE MEDICINE NURSING NOTE DATE OF NOTE: SEP 29, 2024@14:37 ENTRY DATE: SEP 29, 2024@14:37:18 AUTHOR: SILAS BASSETTER: URGENCY: STATUS: COMPLETED Cigarette Pack Year History: The patient previously used cigarettes and quit smoking greater than or equal to 15 years ago. Suicide Screen: C-SSRS Screening [place]-Suicide Severity Rating Scale (C-SSRS Screener) 1. Over the past month, have you wished you were or wished you could go to sleep and not wake up? No 2. Over the past month, have you had any actual thoughts of killing yourself? No 3. Over the past month, have you been thinking about how you might do this? Response not required due to responses to other questions. 4. Over the past month, have you had these thoughts and had some intention of acting on them? Response not required due to responses to other questions. 5. Over the past month, have you started to work out or worked out the details of how to kill yourself? Response not required due to responses to other questions. 6. If yes, at any time in the past month did you intend to carry out this plan? Response not required due to responses to other questions. 7. In your lifetime, have you ever done anything, started to do anything, or prepared to do anything to end your life (for example, collected pills, obtained a gun, gave away valuables, went to the roof but didn't jump)? No 8. If YES, was this within the past 3 months? Response not required due to responses to other questions. /sam/ Silas [facility] Residue Furnace Operator LEADITE WORKER,PRIMARY CARE Signed: 09/29/2024 14:39 SILAS BASSETT CNTR[facility] WSN [facility]
--- OUTSIDE RECORDS SUMMARY | 2024-10-23 07:30 | XMS_ITS | Encounter Summary ---
Author Name [facility] Organization [facility] Address [address] [place] [id number] Care Team Providers Care Mold Technician Name Role Phone BENITO MORRIS Primary Care [...] [facility] Dec 13, 2018 [id number] [facility] OTHER RELATIONSHIP Selected Encounter This section includes the information on record at ID for the Encounter. Date/Time Encounter Type Encounter Description Reason Provider Source Oct 23, 2024 11:30 AM COMPRE OPH EXAM NEW PT 1/> OPTOMETRY ICD-10-CM H25.813 Combined forms of age-related cataract, bilateral MERHAR,BARBARA B IHE Encounter Template Text not used by ID Assessments - Encounter Diagnoses This section includes the primary and secondary diagnoses documented for the Encounter. Date/Time Primary/Secondary Diagnosis Diagnosis Name Provider Source Dec 27, 2024 08:03 AM PRIMARY Combined forms of age-related cataract, bilateral MERHAR,BARBARA B [facility] Dec 27, 2024 08:03 AM SECONDARY Hypermetropia, bilateral JORDYN,BARBARA B [facility] Dec 27, 2024 08:03 AM SECONDARY Lattice degeneration of retina, right eye JORDYN,BARBARA B [facility] Plan of Treatment: Future Appointments (+ 6 months) and Future Tests (+/- 45 days) The Plan of Treatment section includes future care activities for the patient [facility] This section includes future appointments and future orders which are active, pending or scheduled. Future Appointments This section includes appointments that were scheduled to occur 6 months from the date of the Encounter, up to a maximum of 20 appointments. The data comes from all [facility]. Appointment Date/Time Appointment Type Appointme nt Facility Name Nov 17, 2024 02:30 PM AMBULATORY - MEDICINE [facility] Nov 17, 2024 03:00 PM AMBULATORY MEDICINE [facility] Dec 30, 2024 03:00 PM AMBULATORY - MEDICINE [facility] Active, Pending, and Scheduled Orders This section includes a listing of several types of active, pending, and scheduled orders, including clinic medications orders, diagnostic test orders, procedure orders and consult orders; where the start date of the order is 45 days before the date of the Encounter or 45 days after the date of theEncounter. The data comes from all [facility]. Test Date/Time Test Type Test Details Facility Name Nov 17, 2024 12:00 AM Laboratory - Chemistry Order HEMOGLOBIN A1C PANEL BLOOD (LAV-BLOOD) [facility] Nov 17, 2024 12:00 AM Laboratory - Chemistry Order URINALYSIS URINE [facility] Nov 17, 2024 12:00 AM Laboratory - Chemistry Order MICROALBUMIN CREATININE RATIO PANEL URINE (RANDOM) [facility] Nov 17, 2024 12:00 AM Laboratory - Chemistry Order TSH BLOOD (SST-SERUM) [facility] Nov 26, 2024 12:00 AM Laboratory - Chemistry Order OCCULT BLOOD FIT X1 SCREEN (MFP ONLY) STOOL FECES SP [facility] Lab Results: +/- 30 days of the encounter This section includes the Chemistry and Hematology Lab Results on record with ID for the patient. Radiology Reports and Pathology Reports are provided separately, in subsequent sections. Lab Results This section contains the Chemistry/Hematology Results that were resulted 30 days before or 30 daysafter the date of the Encounter. Date/Time Source Result Type Result - Unit Interpretation Reference Range Specimen Type Comment Nov 07, 2024 09:53 AM [facility] HIV 1&2 Ag/Ab SCREEN SERUM Specimen Type: SERUM No comment entered. Ordering Provider: NATHAN MORRIS Report Released Date/Time: Sep 29, 2024 04:02 PM Reporting Lab: [address] [address] Performing Lab: [address] [address] HIV 1&2 Ag/Ab SCREEN NON-REACTIVE Nonrea ctive Nov 07, 2024 09:53 AM [facility] LIPID PANEL FASTING SERUM Specimen Type: SERU M No comment entered. Ordering Provider: BENITO MORRIS Report Released Date/Time: Sep 29, 2024 04:02 PM Reporting Lab: [address] [address] Performing Lab: [address] [address] CHOLESTEROL 244 mg/dL H TRIGLYCERIDE 231 mg/dL H 0-150 LDL calculated 137 mg/dL H 0-129 CHOL/HDL 4.0 HDL CHOLESTEROL 61 mg/dL H 40-60 Nov 07, 2024 09:53 AM [facility] BASIC METABOLIC PANEL (fasting) SERUM Specime n Type: SERUM No comment entered. Ordering Provider: BENITO MORRIS Report Released Date/Time: Sep 29, 2024 04:02 PM Reporting Lab: [address] [address] Performing Lab: [address] [address] UREA NITROGEN 16 mg/dL 7-25 GLUCOSE 193 mg/dL H 65-100 SODIUM 138 mmol/L 135-145 POTASSIUM 4.4 mmol/L 3.5-5.0 CHLORIDE 104 mmol/L 100-110 CO2 21 meq/L 20-30 CREATININE, Serum 1.03 mg/dL 0.50-1.40 eGFR(CKD-EPI 2020) 83 mL/min >60 Nov 07, 2024 09:53 AM [facility] LIVER FUNCTION SERUM Specimen Type: SERUM No comment entered. Ordering Provider: BENITO MORRIS Report Released Date/Time: Sep 29, 2024 04:02 PM Reporting Lab: [address] [address] Performing Lab: [address] [address] PROTEIN,TOTAL 6.8 g/dL 6.0-8.3 ALBUMIN 4.0 g/dL 3.5-5.0 ALKALINE PHOSPHATASE 78 U/L 40-150 AST 27 U/L 5-34 ALT 35 U/L BILIRUBIN, TOTAL 0.6 mg/dL 0.2-1.2 Nov 07, 2024 09:53 AM [facility] URIC ACID SERUM Specimen Type: SERUM No comment entered. Ordering Provider: BENITO MORRIS Report Released Date/Time: Sep 29, 2024 04:02 PM Reporting Lab: [address] [address] Performing Lab: [address] [address] URIC ACID 4.6 mg/dL 3.5-7.2 Nov 07, 2024 09:53 AM [facility] HEPATITIS C ANTIBODY (HCV)-ARC SERUM Specimen Type: SERUM Comment: Hep C Ab: No HCV antibody detected. If recent infection is suspected or other evidence suggests HCV infection, consider HCV nucleic acid testing Ordering Provider: BENITO MORRIS Report Released Date/Time: Sep 29, 2024 04:02 PM Reporting Lab: [address] [address] Performing Lab: [facility] [address] [facility] [address] HEPATITIS C ANTIBODY NON-REACTIVE NON-RE ACTIVE Social History: Smoking Status (Most current) and Tobacco Use (All prior to encounter date) This section includes the most current, and the historical, smoking and tobacco- related health factors from the ID facility where the Encounter took place. Current Smoking Status This section includes the most current smoking, or tobacco-related health factor, from the ID facility where the Encounter took place. Date/Time Current Smoking Status Comment Facil ity Sep 23, 2024 08:28 AM ID-TOBACCO FORMER USER [facility] Tobacco Use History This section includes a history of the smoking, or tobacco-related health factors, that were collected on or before the date of the Encounter. The data comes from the ID facility where the Encounter took place. Date/Time Smoking Status/Tobacco Use Comment F acility Sep 23, 2024 08:28 AM ID-TOBACCO QUIT 15 YRS OR MORE [facility] Advance Directives: All historical and current Section Date Range: From patient's date of to the date document was created. This section includes ALL of a patient's completed or amended ID Advance and Rescinded Directives. The entries below indicate that a directive exists for the patient, but an actual copy is not included with this document. The data comes from all ID facilities. Date Advance Directives Provider Source Sep 29, 2024 ADVANCE DIRECTIVE ABDULKADIR ASTORGA [facility] Encounter Notes: All associated encounter notes This section contains the clinical notes associated to the Encounter. Date/Time Encounter Note(s) Provider Source Oct 23, 2024 11:10 AM OPTOMETRY NOTE: LOCAL TITLE: OPTOMETRY NOTE STANDARD TITLE: OPTOMETRY NOTE DATE OF NOTE: OCT 23, 2024@11:10 ENTRY DATE: OCT 23, 2024@11:10:31 AUTHOR: BARBARA COBB EXP COSIGNER: URGENCY: STATUS: COMPLETED 59 WHITE MALE NOT OR Last eye exam: 2 years ago, [facility] Reason for Visit/CC: new patient here for a comprehensive eye exam. Had glasses previously but reports they were made incorrectly and he couldn't see with them so he's been using +2.50 readers. Prefers bifocals. Wears sunglasses all the time outside. OHx: (-) Pain: (-) BARNES: (-) Diplopia: (-) Flashes: (-) Floaters: (-) Amaurosis Fugax/Tia's: (+) Eye Injury: metal in eye in the [employer] (-) Eye Surgery: (-) TBI (-) FOHx: MHx: Code Description Z77.29 Exposure to potentially hazardous substance ([facility] [id number]) M10.9 Gout ([facility] 51132308) I10. HTN - Hypertension ([facility] 15820204) Z80.8 Family history of malignant melanoma ([facility] [id number]) Z80.0 Family history of cancer of colon ([facility] 684109198) R45.4 Irritability and anger ([facility] 842257554) J30.9 Allergic rhinitis ([facility] 13489992) G47.30 Sleep apnea ([facility] 52382023) G89.18 Pain in back following surgical procedure ([facility] 103956753) Z96.652 History of arthroplasty of left knee ([facility] [id number]) Other: SYSTEMIC MEDICATIONS/OCULAR MEDICATIONS: Active and Recently Outpatient Medications (excluding Supplies): Active Non-VA Medications Status = 1) Non-VA ALLOPURINOL 300MG TAB 300MG BY MOUTH ONCE DAILY ACTIVE 2) Non-VA CITALOPRAM HYDROBROMIDE 40MG TAB 20MG BY MOUTH ONCE ACTIVE DAILY 3) Non-VA OLMESARTAN MEDOXOMIL 20MG TAB 20MG BY MOUTH ONCE ACTIVE DAILY 4) Non-VA OMEPRAZOLE 20MG EC CAP 20MG BY MOUTH EVERY MORNING 30 ACTIVE MINUTES BEFORE BREAKFAST 5) Non-VA VERAPAMIL HCL TAB 360 BY MOUTH ACTIVE ALLERGIES: Patient has answered NKA LAST BP: 140/87 (09/29/2024 14:33) PERTINENT LABS: No data for HEMOGLOBIN A1C ++++++++++++++++++++++++++ ++++++++++++++++++++++++++ ++++++++++++++++++++++++++ + Patient history, visual acuity, entrance testing, refraction and tonometry all performed now by scale technician and reviewed by attending provider. Dilation drops instilled by scale technician after angle assessment and dilation warning given with verbal consent obtained. ++++++++++++++++++++++++++ ++++++++++++++++++++++++++ ++++++++++++++++++++++++++ + Final Rx: OD: +1.00 -0.50 x 046 OS: +1.00 -0.75 x 090 ADD: +2.50 SLE: Lids/Lashes: clear OU Conjunctiva: white and quiet OU Corneas: clear OU Iris: flat and clear OU Anterior Chamber: deep and quiet OU Angles: open OU Lens: tr NS/ACC OU DFE: Vitreous: Syneresis OU, PVD OU C/D (Size and Rim Description) OD 0.20 pink & healthy OS 0.20 pink & healthy Macula OD flat and clear OS flat and clear A/V: normal caliber OU Posterior Pole: clear OU Periphery: Flat and intact (-)holes, tears, detachments 360 OU pigmented lattice superior OD, pigmented scar temp OS Assessment/Plan: 1. combined cataracts OU, minimal and not visually significant. Monitor 2. Pigmented lattice degeneration OU - no holes or tears, pt ed on finding. Monitor 3. hyperopia OU, presbyopia OU - order new bifocals RTC 2 years or earlier PRN patient offered and declined printed medication list Medication Reconciliation: Outpatient: Has the patient been taking medications as documented in the EMLR? YES: The patient has been taking medications as documented in the EMLR. Essential Medication List for Review used to complete this medication reconciliation. INCLUDED IN THIS LIST: Alphabetical list of active outpatient prescriptions dispensed from this VA (local) and dispensed from another VA or [facility] facility (remote) as well as inpatient orders (local, pending and active), local clinic medications, locally documented non-VA medications, and local prescriptions that have or been discontinued in the past 90 days. - All changes in medications, including all non-VA/Herbal/OTC medications were entered into CPRS. - If there were any medications the patient should no longer take, they were discontinued. - The patient/caregiver was instructed to update this list, discard old lists, and take this list to the next appointment, whether with a VA or non-VA provider. JLV Link Data on this list may not be complete. Please check JLV. Allergies/ADRs (Tool #5) FACILITY ALLERGY/ADR -------- No Remote Allergy/ADR Data available for this patient [facility] No Known Allergies Med Recon NoGlossary (Tool #1) INCLUDED IN THIS LIST: Alphabetical list of active outpatient prescriptions dispensed from this VA (local) and dispensed from another VA or [facility] facility (remote) as well as inpatient orders (local pending and active), local clinic medications, locally documented non-VA medications, and local prescriptions that have or been discontinued in the past 90 days. Non-VA Meds Last Documented On: Oct 01, 2024 NOTE The display of VA prescriptions dispensed from another VA or [facility] facility (remote) is limited to active outpatient prescription entries matched to National Drug File at the originating site and may not include some items such as investigational drugs, compounds, etc. NOT INCLUDED IN THIS LIST: Medications self-entered by the patient into personal health records (i.e. [email or web address]) are NOT included in this list. Non-VA medications documented outside this VA, remote inpatient orders (regardless of status) and remote clinic medications are NOT included in this list. The patient and provider must always discuss medications the patient is taking, regardless of where the medication was dispensed or obtained. Non-VA ALLOPURINOL 300MG TAB TAKE ONE TABLET BY MOUTH ONCE DAILY Non-VA CITALOPRAM HYDROBROMIDE 40MG TAB TAKE ONE-HALF TABLET BY MOUTH ONCE DAILY Non-VA OLMESARTAN MEDOXOMIL 20MG TAB TAKE ONE TABLET BY MOUTH ONCE DAILY Non-VA OMEPRAZOLE 20MG EC CAP TAKE 1 CAPSULE BY MOUTH EVERY MORNING 30 MINUTES BEFORE BREAKFAST Non-VA VERAPAMIL HCL TAB TAKE 360 BY MOUTH SUPPLIES EYE: Visual Function Reminder: Normal Vision: 20/25 or better: Unspecified disorder of refraction or accommodation (367.9). /sam/ BARBARA COBB OD Coding Specialist Signed: 10/23/2024 15:41 BARBARA COBB [facility] Oct 23, 2024 08:33 AM OPTOMETRY CRUSHER AND BINDER OPERATOR NOTE: LOCAL TITLE: OPTOMETRY CRUSHER AND BINDER OPERATOR NOTE STANDARD TITLE: OPTOMETRY CRUSHER AND BINDER OPERATOR NOTE DATE OF NOTE: OCT 23, 2024@08:33 ENTRY DATE: OCT 23, 2024@08:33:38 AUTHOR: KATE JADE EXP COSIGNER: URGENCY: STATUS: COMPLETED Active problems - Computerized Problem List is the source for the followin. Exposure to potentially hazardous substance ([facility] [id number]) 2. Gout ([facility] 35256692) 3. HTN - Hypertension ([facility] 35114782) 4. Family history of malignant melanoma 5. Family history of cancer of colon 6. Irritability and anger 7. Allergic rhinitis 8. Sleep apnea 9. Pain in back following surgical procedure 10. History of arthroplasty of left knee Active Outpatient Medications (including Supplies): Active Non-VA Medications Status 1) Non-VA ALLOPURINOL 300MG TAB 300MG BY MOUTH ONCE DAILY ACTIVE 2) Non-VA CITALOPRAM HYDROBROMIDE 40MG TAB 20MG BY MOUTH ONCE ACTIVE DAILY 3) Non-VA OLMESARTAN MEDOXOMIL 20MG TAB 20MG BY MOUTH ONCE ACTIVE DAILY 4) Non-VA OMEPRAZOLE 20MG EC CAP 20MG BY MOUTH EVERY MORNING 30 ACTIVE MINUTES BEFORE BREAKFAST 5) Non-VA VERAPAMIL HCL TAB 360 BY MOUTH ACTIVE Allergies: Patient has answered NKA All medications including those prescribed by outside VA's, community providers, and all OTC meds were reviewed and reconciled with patient to the best of their abilities. This 59 year old MALE is seen today for New patient complete eye exam Medical, eye, personal, and social history are all reviewed and is contributory or is not contributory to today's visit. Date of last eye exam:2 years ago, [place] [facility] Location: [facility] Chief Complaint:Patient here today for a New patient complete eye exam. Prescribed him glasses but has not worked, thinks grinded glasses wrong but got sick of dealing with them. wear OTC reads +2.50. Very senativity to light, wind/air. wears sunglasses all the time. Can not drive at night has bad night time glare. No dryness, no tearing. NO change in medication or allergies. HISTORY AND REVIEW OF SYSTEMS: (-) Pain: (-) BARNES: (-) Diplopia: (-) Flashes: (+) Floaters:Longstanding (-) Amaurosis Fugax/Tia's: (+) Eye Injury:Metal several times in the [employer] [phone] (-) Eye Surgery: (-) TBI (-) FOHx: (-) Smoker/Length of Time/PPD: quit 32 years ago DIABETIC:NO Last A1C: EYE MEDICATION(S): None VISION AND REFRACTION: Current Rx with last BCVA: OTC readers +2.50 DVA ( )sc ( )cc OD:20/30-- OS:20/25-- NV OU:20/25 OTC +2.50 Auto Refraction: OD:+0.75 -0.50 46 OS:+1.00 -0.50 90 PD:64 Manifest Refraction (MRx): OD:+1.00 -0.50 46 20/20 OS:+1.00 -0.75 90 20/20 ADD:+2.50 20/20 Intraocular Pressure (IOP) Method: Icare Time:11:23am Rechecked by Merhar:11:36am Luevano OD:18 OD:16 OS:11 OS:11 Pupils: PERRL (-)APD EOMs: SAFE OU,(-)Pain/Diplopia CVF(facial, peripheral): FTFC OU ANTERIOR CHAMBER (AC) Penlight or slit lamp (if available) exam appears unremarkable. Pupils are dilated. Dilation and driving precautions reviewed with patient and patient expresses understanding. Medication: 1% Tropicamide, 2.5% Phenylephrine OU Time:11:37am Visual Imaging Performed Today:NONE Additional Comments:Would like to do bifocals clear, will get clip ons. /sam/ KATE PAULSON YASMANY [facility] TECHINICIAN Signed: 10/23/2024 11:37 KTAE JADE ID [facility]
--- OUTSIDE RECORDS SUMMARY | 2024-11-17 10:30 | XMS_ITS | Encounter Summary ---
Author Name [facility] [place] [facility] [place] Address [address] [place] [address] Care Team Providers Care Kick Press Operator Name Role Phone MISHA MCCULLOUGH Primary Care Provider Unavail able Insurance Providers: [...] E HEALTH PLAN POLIS H NATIO NAL [facility] Dec 13, 2018 [id number] [phone] [employer] OTHER RELATIONSHIP Selected Encounter This section includes the information on record at [place] for the Encounter. Date/Time Encounter Type Encounter Description Reason Provider Source Nov 17, 2024 02:30 PM OFF/OP EST MARCH X REQ PHY/QHP PRIMARY CARE/MEDICINE ICD-10-CM I10 Essential (primary) hypertension BRANDY RUBALCAVA E Encounter Template Text not used by [place] Assessments - Encounter Diagnoses This section includes the primary and secondary diagnoses documented for the Encounter. Date/Time Primary/Secondary Diagnosis Diagnosis Name Provider Source Dec 27, 2024 08:01 AM PRIMARY Essential (primary) hypertension BRANDY RUBALCAVA [place] [facility] Plan of Treatment: Future Appointments (+ 6 months) and Future Tests (+/- 45 days) The Plan of Treatment section includes future care activities for the patient from all [place] [facility]. This section includes future appointments and future orders which are active, pending or scheduled. Future Appointments This section includes appointments that were scheduled to occur 6 months from the date of the Encounter, up to a maximum of 20 appointments. The data comes from all [facility] facilities. Appointment Date/Time Appointment Type Appointme nt Facility Name Dec 30, 2024 03:00 PM AMBULATORY - MEDICINE [facility] Active, Pending, and Scheduled Orders This section includes a listing of several types of active, pending, and scheduled orders, including clinic medications orders, diagnostic test orders, procedure orders and consult orders; where the start date of the order is 45 days before the date of the Encounter or 45 days after the date of theEncounter. The data comes from all [facility]. Test Date/Time Test Type Test Details Facility Name Nov 17, 2024 12:00 AM Laboratory - Chemistry Order HEMOGLOBIN A1C PANEL BLOOD (LAV-BLOOD) [facility] Nov 17, 2024 12:00 AM Laboratory - Chemistry Order URINALYSIS URINE [facility] Nov 17, 2024 12:00 AM Laboratory - Chemistry Order MICROALBUMIN CREATININE RATIO PANEL URINE (RANDOM) [facility] Nov 17, 2024 12:00 AM Laboratory - Chemistry Order TSH BLOOD (SST-SERUM) [facility] Nov 26, 2024 12:00 AM Laboratory - Chemistry Order OCCULT BLOOD FIT X1 SCREEN (MFP ONLY) STOOL FECES [facility] Lab Results: +/- 30 days of the encounter This section includes the Chemistry and Hematology Lab Results on record with [place] for the patient. Radiology Reports and Pathology Reports are provided separately, in subsequent sections. Lab Results This section contains the Chemistry/Hematology Results that were resulted 30 days before or 30 daysafter the date of the Encounter. Date/Time Source Result Type Result - Unit Interpretation Reference Range Specimen Type Comment Nov 07, 2024 09:53 AM [facility] HIV 1&2 Ag/Ab SCREEN SERUM Specimen Type: SERUM No comment entered. Ordering Provider: NATHAN MCCULLOUGH Report Released Date/Time: Sep 29, 2024 04:02 PM Reporting Lab: [address] [address] Performing Lab: [address] [address] HIV 1&2 Ag/Ab SCREEN NON-REACTIVE Nonrea ctive Nov 07, 2024 09:53 AM [facility] LIPID PANEL FASTING SERUM Specimen Type: SERU M No comment entered. Ordering Provider: MISHA MCCULLOUGH Report Released Date/Time: Sep 29, 2024 04:02 PM Reporting Lab: [address] [address] Performing Lab: [address] [address] CHOLESTEROL 244 mg/dL H TRIGLYCERIDE 231 mg/dL H 0-150 LDL calculated 137 mg/dL H 0-129 CHOL/HDL 4.0 HDL CHOLESTEROL 61 mg/dL H 40-60 Nov 07, 2024 09:53 AM [facility] BASIC METABOLIC PANEL (fasting) SERUM Specime n Type: SERUM No comment entered. Ordering Provider: MISHA MCCULLOUGH Report Released Date/Time: Sep 29, 2024 04:02 PM Reporting Lab: [address] [address] Performing Lab: [address] [address] UREA NITROGEN 16 mg/dL 7-25 GLUCOSE 193 mg/dL H 65-100 SODIUM 138 mmol/L 135-145 POTASSIUM 4.4 mmol/L 3.5-5.0 CHLORIDE 104 mmol/L 100-110 CO2 21 meq/L 20-30 CREATININE, Serum 1.03 mg/dL 0.50-1.40 eGFR(CKD-EPI 2020) 83 mL/min >60 Nov 07, 2024 09:53 AM [facility] LIVER FUNCTION SERUM Specimen Type: SERUM No comment entered. Ordering Provider: MISHA MCCULLOUGH Report Released Date/Time: Sep 29, 2024 04:02 PM Reporting Lab: [address] [address] Performing Lab: [address] [address] PROTEIN,TOTAL 6.8 g/dL 6.0-8.3 ALBUMIN 4.0 g/dL 3.5-5.0 ALKALINE PHOSPHATASE 78 U/L 40-150 AST 27 U/L 5-34 ALT 35 U/L BILIRUBIN, TOTAL 0.6 mg/dL 0.2-1.2 Nov 07, 2024 09:53 AM [facility] URIC ACID SERUM Specimen Type: SERUM No comment entered. Ordering Provider: MISHA MCCULLOUGH Report Released Date/Time: Sep 29, 2024 04:02 PM Reporting Lab: [address] [address] Performing Lab: [address] [address] URIC ACID 4.6 mg/dL 3.5-7.2 Nov 07, 2024 09:53 AM [facility] HEPATITIS C ANTIBODY (HCV)-ARC SERUM Specimen Type: SERUM Comment: Hep C Ab: No HCV antibody detected. If recent infection is suspected or other evidence suggests HCV infection, consider HCV nucleic acid testing Ordering Provider: MISHA MCCULLOUGH Report Released Date/Time: Sep 29, 2024 04:02 PM Reporting Lab: [address] [address] Performing Lab: [address] [address] HEPATITIS C ANTIBODY NON-REACTIVE NON-RE ACTIVE Social History: Smoking Status (Most current) and Tobacco Use (All prior to encounter date) This section includes the most current, and the historical, smoking and tobacco- related health factors from the [place] facility where the Encounter took place. Current Smoking Status This section includes the most current smoking, or tobacco-related health factor, from the [place] facility where the Encounter took place. Date/Time Current Smoking Status Comment Tyrone ity Sep 23, 2024 08:28 AM [place]-TOBACCO FORMER USER [facility] Tobacco Use History This section includes a history of the smoking, or tobacco-related health factors, that were collected on or before the date of the Encounter. The data comes from the [place] facility where the Encounter took place. Date/Time Smoking Status/Tobacco Use Comment F acility Sep 23, 2024 08:28 AM [place]-TOBACCO QUIT 15 YRS OR MORE [facility] Advance Directives: All historical and current Section Date Range: From patient's date of to the date document was created. This section includes ALL of a patient's completed or amended [place] Advance and Rescinded Directives. The entries below indicate that a directive exists for the patient, but an actual copy is not included with this document. The data comes from all [place] facilities. Date Advance Directives Provider Source Sep 29, 2024 ADVANCE DIRECTIVE ABDULKADIR ASTORGA [facility] Encounter Notes: All associated encounter notes This section contains the clinical notes associated to the Encounter. Date/Time Encounter Note(s) Provider Source Nov 17, 2024 02:32 PM PRIMARY CARE OUTPA TIENT NOTE: LOCAL TITLE: AMBULATORY/OUTPATIENT CARE NOTE STANDARD TITLE: PRIMARY CARE OUTPATIENT NOTE DATE OF NOTE: NOV 17, 2024@14:32 ENTRY DATE: NOV 17, 2024@14:32:51 AUTHOR: PONCHO RUBALCAVA EXP COSIGNER: URGENCY: STATUS: COMPLETED Blood pressure check: F: Nursing Clinic D: here for blood pressure check per PCP Misha Mccullough. León has history of hypertension. Presently he is taking this medication for elevated B/P: Non-VA OLMESARTAN TAB 20MG TAKE ONE TABLET BY MOUTH ONCE DAILY Non-VA VERAPAMIL HCL TAB TAKE 360 BY MOUTH Medications prescribed by outside PCP Dr. Ashton A: B/P today is 116/76 in his right arm and 118/80 in his left arm (manual cuff used with arm elevated at heart level) Pulse is 59. Will review results with pcp. R: [place] tolerated well and left area ab radha. /es/ PONCHO RUBALCAVA RN REGISTERED NURSE Signed: 11/17/2024 14:38 Receipt Acknowledged By: 11/18/2024 15:20 /es/ Misha Mccullough PA-C STAFF PHYSICIAN CLOTHES SHAKER PONCHO RUBALCAVA [facility]
--- OUTSIDE RECORDS SUMMARY | 2024-12-30 11:00 | XMS_ITS ---
Author Name [facility] [place] Address [address] [place] [id number] Care Team Providers Care Language And Literature Division Chair Name Role Phone MISHA MCCULLOUGH Primary Care [...] E HEALTH PLAN POLIS H NATIO NAL [facility] Dec 13, 2018 [id number] [id number] [employer]SH[employer] Selected Encounter This section includes the information on record at [place] for the Encounter. Date/Time Encounter Type Encounter Description Reason Provider Source Dec 30, 2024 03:00 PM OFFICE O/P EST LOW 20 MIN PRIMARY CARE/MEDICINE ICD-10-CM I10 Essential (primary) hypertension JAIRON MCCULLOUGH Mert Encounter Template Text not used by [place] Assessments - Encounter Diagnoses This section includes the primary and secondary diagnoses documented for the Encounter. Date/Time Primary/Secondary Diagnosis Diagnosis Name Provider Source Jan 10, 2025 08:01 AM PRIMARY Essential (primary) hypertension JAIRON MCCULLOUGH [place] [facility] Jan 10, 2025 08:01 AM SECONDARY Encounter for immunization ROYA FIGUEROA [facility] Plan of Treatment: Future Appointments (+ 6 months) and Future Tests (+/- 45 days) The Plan of Treatment section includes future care activities for the patient from all [place] treatmentfacilities. This section includes future appointments and future orders which are active, pending or scheduled. Active, Pending, and Scheduled Orders This section includes a listing of several types of active, pending, and scheduled orders, including clinic medications orders, diagnostic test orders, procedure orders and consult orders; where the start date of the order is 45 days before the date of the Encounter or 45 days after the date of theEncounter. The data comes from all [place] treatment facilities. Test Date/Time Test Type Test Details Facility Name Nov 17, 2024 12:00 AM Laboratory - Chemistry Order HEMOGLOBIN A1C PANEL BLOOD (LAV-BLOOD) [facility] Nov 17, 2024 12:00 AM Laboratory - Chemistry Order URINALYSIS URINE [facility] Nov 17, 2024 12:00 AM Laboratory - Chemistry Order MICROALBUMIN CREATININE RATIO PANEL URINE (RANDOM) [facility] Nov 17, 2024 12:00 AM Laboratory - Chemistry Order TSH BLOOD (SST-SERUM) [facility] Nov 26, 2024 12:00 AM Laboratory - Chemistry Order OCCULT BLOOD FIT X1 SCREEN (MFP ONLY) STOOL FECES [facility] Vital Signs: All taken on the encounter date This section contains inpatient and outpatient Vital Signs collected on the date of the Encounter. Date/Time Temperature Pulse Blood Pressure Respiratory Rate SP02 Pain Height Weight Body Mass Index Source Dec 30, 2024 02:55 PM 98.5 74 126/84 16 97 0 255 38 [facility] Immunizations: All administered on the encounter date This section contains immunizations associated to the Encounter. Immunization Series Date Issued Administered By Site Reaction Lot Number CVX Code Drug Flea Market Seller Comment(s) Source TDAP Dec 30, 2024 ROYA FIGUEROA LEFT DELTO ID [id number] [employer] [address] Booster for Series, ADMINISTERE D AT [place], [facility] Social History: Smoking Status (Most current) and Tobacco Use (All prior to encounter date) This section includes the most current, and the historical, smoking and tobacco- related health factors from the [place] facility where the Encounter took place. Current Smoking Status This section includes the most current smoking, or tobacco-related health factor, from the [place] facility where the Encounter took place. Date/Time Current Smoking Status Comment Facil ity Sep 23, 2024 08:28 AM [place]-TOBAC[place] FORMER USER [facility] Tobacco Use History This section includes a history of the smoking, or tobacco-related health factors, that were collected on or before the date of the Encounter. The data comes from the [place] facility where the Encounter took place. Date/Time Smoking Status/Tobacco Use Comment F acility Sep 23, 2024 08:28 AM [place]-TO[place]AC[place] QUIT 15 YRS OR MORE [facility] Advance Directives: All historical and current Section Date Range: From patient's date of to the date document was created. This section includes ALL of a patient's completed or amended [place] Advance and Rescinded Directives. The entries below indicate that a directive exists for the patient, but an actual copy is not included with this document. The data comes from all [place] facilities. Date Advance Directives Provider Source Sep 29, 2024 ADVANCE DIRECTIVE ABDULKADIR ASTORGA [facility] Encounter Notes: All associated encounter notes This section contains the clinical notes associated to the Encounter. Date/Time Encounter Note(s) Provider Source Dec 30, 2024 03:26 PM PHYSICIAN POPCORN ATTENDANT NOTE: LOCAL TITLE: WANDA NOTE STANDARD TITLE: PHYSICIAN POPCORN ATTENDANT NOTE DATE OF NOTE: DEC 30, 2024@15:26 ENTRY DATE: DEC 30, 2024@15:26:43 AUTHOR: MISHA MCCULLOUGH COSIGNER: URGENCY: STATUS: COMPLETED WANDA NOTE Has ADDENDA CC/HPI/A/P: 59 year old MALE here in follow-up for; Elevated glucose. he was not fasting for October labs and did not come for added labs as messaged. We discuss at length, consider labs here, but as he will continue care outside for another 1-2 years, we ultimately print recent labs, eh will dw PCP in February. obesity, reminder. Review of systems: Patient reports no changes from [place] [place] [facility], in meds or any admissions. Active problems - Computerized Problem List is the source for the followin. Exposure to potentially hazardous substance ([facility] [id number]) Entered automatically through [facility] Problem List documentation program 2. Gout ([facility] [id number]) 3. HTN - Hypertension ([facility] [id number]) 4. Family history of malignant melanoma Father 5. Family history of cancer of colon Uncles Plural, on his father's side. 6. Irritability and anger 7. Allergic rhinitis Allergic Rhinitis- Pollen, grass, trees 8. Sleep apnea Sleep apnea- CPAP 9. Pain in back following surgical procedure Back Surgery L4-L5- surgery 10. History of arthroplasty of left knee L knee partial replacement surgery SERVICE CONNECTED % - 10 VA and Non VA meds were reconciled with the patient who left with a corrected copy. See medication page for details. Active and Recently Outpatient Medications (excluding Supplies): Active Non-VA Medications Status 1) Non-VA [...] VERAPAMIL HCL TAB 360 BY MOUTH ACTIVE 98.5 F [36.9 C] (12/30/2024 14:55) 74 (12/30/2024 14:55) 16 (12/30/2024 14:55) 126/84 (12/30/2024 14:55) 0 (12/30/2024 14:55) 69 in [175.3 cm] (09/29/2024 14:33) 255 lb [115.67 kg] (12/30/2024 14:55) BMI: 37.7 Neuro: Alert and oriented times three, grossly nonfocal, nasolabial folds intact. Thyroid nonpalpable. Cor: Regular rate and rhythm, normal s1 and 2 without Murmur, carotid bruits or pedal edema. Lungs; Clear to auscultation bilaterally. Recent labs reviewed with patient today: BMI>30/>24.99 High Risk: At this visit, the health risks of obesity were reviewed and discussed with the [place], and the benefits of a weight management treatment program, such as [facility]! was discussed and offered to the [place]. After discussing the health risks of being overweight or obese and providing information about available weight management treatment, and offering a referral to [facility] or another weight management treatment program outside the [place], the patient DECLINES REFERRAL to MOVE or any other weight management treatment program at this time. I will consider it' (a consult). He has had ONLY ONE I WILL GET covid shot at a park in [place] when covid began. does not report SEs. He will send docs. He report shingles shot at [facility] in [place]. Please request. /sam/ Misha Mccullough PA-C STAFF PHYSICIAN POPCORN ATTENDANT Signed: 12/30/2024 15:31 Receipt Acknowledged By: 12/31/2024 15:19 /sam/ MARINO FIGUEROA LPN 12/31/2024 ADDENDUM STATUS: COMPLETED Call placed to [facility] pharmacy at stated location, no vaccnis on file /charlette FIGUEROA LPN Signed: 12/31/2024 14:39 MISHA MCCULLOUGH [place] [facility] Dec 30, 2024 03:04 PM PREVENTIVE MEDICINE NURSING NOTE: LOCAL TITLE: CLINICAL REMINDERS/NURSING STANDARD TITLE: PREVENTIVE MEDICINE NURSING NOTE DATE OF NOTE: DEC 30, 2024@15:04 ENTRY DATE: DEC 30, 2024@15:04:21 AUTHOR: MARINO FIGUEROA EXP COSIGNER: URGENCY: STATUS: COMPLETED Avg Risk Colorectal Cancer Screen: AVERAGE RISK colorectal cancer screening is due based on information available to this clinical reminder CRC screen completed elsewhere and waiting for results. Results expected: Colonoscopy Comment: [facility] Tdap Immunization: Administered: TDAP Date Administered: Dec 30, 2024 15:00 Series: Booster Flea Market Seller: [employer] Lot: [id number] Exp Date: May 01, 2026 [facility]: [id number] Admin Route/Site: INTRAMUSCULAR/LEFT DELTOID Dosage: 0.5mL Vaccine Information Statement(s): TDAP (TETANUS, DIPHTHERIA, PERTUSSIS) VACCINE VIS Jun 17, 2021 ([place]) Order By: Policy Administered By: Marino Figueroa Vaccine Information Sheet (VIS) was given to the patient/caregiver, education regarding adverse reactions was discussed, as well as barriers to learning, if any, were acknowledged. /sam/ MARINO FIGUEROA LPN Signed: 12/30/2024 15:05 MARINO FIGUEROA [facility]L [facility]
--- OUTSIDE RECORDS SUMMARY | 2025-06-30 09:45 | XMS_ITS | Continuity of Care Document ---
Author Name [facility] Organization 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 Unavailable Unavailable Problems Combined list of problems from Department of Defense and Veterans Affairs facilities. It does not include entries that were removed or entered in error. Problem Status Onset Date Problem Type Date of Resolution Comments Source Allergic rhinitis Active Condition Sep 23, 2024 Entered By: CISCO VARGAS Comment: Allergic Rhinitis- Pollen, grass, trees [facility] Exposure to potentially hazardous substance (SCT [id number]) Active Condition Oct 01 Entered By: JULIA DYKES Comment: Entered automatically through [facility] Problem List documentation program [facility] Family history of cancer of colon Active Condition Sep 29, 2024 Entered By: NATHAN MORRIS Comment: Uncles Plural, on his father's side. [facility] Family history of malignant melanoma Active Condition Sep 29, 2024 Entered By: NATHAN MORRIS Comment: Father [facility] Gout (SCT [id number]) Active Condition [facility] History of arthroplasty of left knee Active Condition Sep 23, 2024 Entered By: CISCO VARGAS Comment: L knee partial replacement surgery [facility] HTN - Hypertension (SCT [id number]) Active Condition [facility] Irritability and anger Active Condition [facility] Obesity (SCT [id number]) Active Condition [facility] Pain in back following surgical procedure Active Condition Sep 23, 2024 Entered By: CISCO VARGAS Comment: Back Surgery L4-L5- surgery [facility] Sleep apnea Active Condition Sep 23, 2024 Entered By: CISCO VARGAS Comment: Sleep apnea- CPAP [facility] Diagnosis: ICD-10-CM I10 Essential (primary) hypertension Active Diagnosis [facility] Diagnosis: ICD-10-CM Z46.0 Encounter for fit/adjst of spectacles and contact lenses [facility] Diagnosis: ICD-10-CM H25.813 Combined forms of age-related cataract, bilateral Active Diagnosis [facility] Diagnosis: ICD-10-CM H90.3 Sensorineural hearing loss, bilateral Active Diagnosis [facility] Diagnosis: ICD-10-CM M10.9 Gout, unspecified Active Diagnosis [facility] Diagnosis: ICD-10-CM Z71.89 Other specified counseling Active Diagnosis [facility] Medications Combined list of outpatient medications from Department of Defense and Veterans Affairs facilities.Medications provided include 1) outpatient medications from the last 15 months, and 2) patient-reported medications. Medication Details Route Status Patient Instructions Prescription Expires Prescription Number Last Dispense Date Ordering Provider Order Date Order Qty Source ALLOPURINOL 300MG TAB TAKE ONE TABLET BY MOUTH ONCE DAILY ORAL ACTIVE ALEXANDRABENITO Isabela 2023 [facility] CITALOPRAM HYDROBROMID E 40MG TAB TAKE ONE-HALF TABLET BY MOUTH ONCE DAILY ORAL ACTIVE BENITO MORRIS [facility]23 [facility] OLMESARTAN MEDOXOMIL 20MG TAB TAKE ONE TABLET BY MOUTH ONCE DAILY ORAL ACTIVE NICKYPRBENITO PEREZ 2023 [facility] OMEPRAZOLE 20MG CAP,EC TAKE 1 CAPSULE BY MOUTH EVERY MORNING 30 MINUTES BEFORE BREAKFAS T ORAL ACTIVE EMILYGNBENITO LAKHANI 2023 [facility] VERAPAMIL HCL TAB TAKE 360 BY MOUTH ORAL ACTIVE BENITO MORRIS 2023 [facility] Immunizations Combined list of available immunizations from the Department of Defense and Veterans Affairs facilities. Immunization Series Date Given Administered By Site Reaction Lot Number CVX Code Drug Clinical Science Consultant Status Comments Source TDAP 2024 ROYA FIGUEROA E LEFT DELTO ID [id number] 115 complet ed Booster for Series, ADMINISTE RED AT [place], [place] [employer] XM RadioTRN fanatixCHU [facility] INFLUENZA, UNSPECIFIED FORMULATION 2023 88 complet ed HISTORICA L INFORMATI ON - FROM PATIENT'S RECALL, [facility] COVID-19 (MODERNA), MRNA, LNP-S, PF, 100 MCG/0.5ML DOSE OR 50 MCG/0.25ML DOSE 1 2020 207 complet ed HISTORICA L INFORMATI ON - [facility] OTHER PROVIDER, [facility] RadioTR[facility]CHU [facility] COVID-19 (MODERNA), MRNA, LNP-S, PF, 50 MCG/0.5 ML (AGES 12+ YEARS) 1 2020 312 complet ed HISTORICA L INFORMATI ON - FROM OTHER PROVIDER, [place] [employer] [facility] RadioTR[facility]CH[facility] COVID-19 (MODERNA), MRNA, LNP-S, PF, 100 MCG/0.5ML DOSE OR 50 MCG/0.25ML DOSE 2 2020 207 complet ed HISTORICA L INFORMATI ON - FROM OTHER PROVIDER, [place] [employer] [facility]ST[facility] fanatixU [facility] Results Combined list of recent chemistry, hematology and other laboratory results from Department of Defense and Veterans Affairs, ranging from 15 months to all on record, depending upon the facility. Order Name Results Value Reference Range Date Interpretation Specimen Comments Source HIV 1&2 Ag/Ab SCREEN HIV 1+2 AB+HIV1 P24 AG [PRESENCE] IN SERUM OR PLASMA BY IMMUNOASSAY NON-RE ACTIVE 11/07 Specimen Type: SERUM No comment entered. Ordering Provider: Michelle MORRIS Report Released Date/Time: Sep 29, 2024 04:02 PM Reporting Lab: [facility]ST[facility] fring LtdNYU [facility] [address] [address] Performing Lab: [facility] [employer] PharmaceuticalsUSENYU [facility] [address] [address] [facility] XM RadioN [employer] PharmaceuticalsUSE [facility] LIPID PANEL FASTING CHOLESTEROL [MASS/VOLUM E] IN SERUM OR PLASMA 244 mg/dL 11/07 H Specimen Type: SERUM No comment entered. Ordering Provider: Michelle MORRIS Report Released Date/Time: Sep 29, 2024 04:02 PM Reporting Lab: [facility] [address] [address] Performing Lab: [place] [facility] [place] [facility] [address] [address] [facility] LIPID PANEL FASTING TRIGLYCERID E [MASS/VOLUM E] IN SERUM OR PLASMA 231 mg/dL 0 - 150 11/07 H Specimen Type: SERUM No comment entered. Ordering Provider: Michelle MORRIS Report Released Date/Time: Sep 29, 2024 04:02 PM Reporting Lab: [facility] [place] [facility] [address] [address] Performing Lab: [facility] [place] [address] [address] [facility] LIPID PANEL FASTING CHOLESTEROL IN LDL [MASS/VOLUM E] IN SERUM OR PLASMA BY CALCULATION 137 mg/dL 0 - 129 11/07 H Specimen Type: SERUM No comment entered. Ordering Provider: Michelle MORRIS Report Released Date/Time: Sep 29, 2024 04:02 PM Reporting Lab: [facility] [address] [address] Performing Lab: [facility] [facility] [address] [address] [facility] LIPID PANEL FASTING CHOLESTEROL .TOTAL/CHOL ESTEROL IN HDL [MASS RATIO] IN SERUM OR PLASMA 4.0 11/07 Specimen Type: SERUM No comment entered. Ordering Provider: Michelle MORRIS Report Released Date/Time: Sep 29, 2024 04:02 PM Reporting Lab: [facility] [place] [facility] [address] [address] Performing Lab: [facility] [place] [address] [address] [facility] LIPID PANEL FASTING CHOLESTEROL IN HDL [MASS/VOLUM E] IN SERUM OR PLASMA 61 mg/dL 40 - 60 11/07 H Specimen Type: SERUM No comment entered. Ordering Provider: Michelle MORRIS Report Released Date/Time: Sep 29, 2024 04:02 PM Reporting Lab: [facility]OSPITALTRN [facility] [address] [address] Performing Lab: [facility]RL TRN [facility]USEN[facility] [address] [address] [facility]ENTERRFLORALA MEMORIAL HOS[facility]ITALN [facility] BASIC METABOLIC PANEL (fasting) UREA NITROGEN [MASS/VOLUM E] IN SERUM OR PLASMA 16 mg/dL 7 - 25 11/07 Specimen Type: SERUM No comment entered. Ordering Provider: Michelle MORRIS Report Released Date/Time: Sep 29, 2024 04:02 PM Reporting Lab: [facility]OSPITALTRN [facility] [address] [address] Performing Lab: [facility]RL TRN [facility] [address] [address] [facility]ENTERRFLORALA MEMORIAL HOSPITALN [facility]ENTERUSE [facility] BASIC METABOLIC PANEL (fasting) GLUCOSE [MASS/VOLUM E] IN SERUM OR PLASMA 193 mg/dL 65 - 100 11/07 H Specimen Type: SERUM No comment entered. Ordering Provider: Michelle MORRIS Report Released Date/Time: Sep 29, 2024 04:02 PM Reporting Lab: [facility]OSPITALTRN [facility] [address] [address] Performing Lab: [facility]RL TRN [facility] [address] [address] [facility]ENTERRFLORALA MEMORIAL HOSPITALN [facility]ENTERUSE [facility] BASIC METABOLIC PANEL (fasting) SODIUM [MOLES/VOLU ME] IN SERUM OR PLASMA 138 mmol/L 135 - 145 11/07 Specimen Type: SERUM No comment entered. Ordering Provider: Michelle MORRIS Report Released Date/Time: Sep 29, 2024 04:02 PM Reporting Lab: [facility]PITALTRN [facility] [address] [address] Performing Lab: [place] [facility] [place] [facility] [address] [address] [facility] [facility] BASIC METABOLIC PANEL (fasting) POTASSIUM [MOLES/VOLU ME] IN SERUM OR PLASMA 4.4 mmol/L 3.5 - 5.0 11/07 Specimen Type: SERUM No comment entered. Ordering Provider: Michelle MORRIS Report Released Date/Time: Sep 29, 2024 04:02 PM Reporting Lab: [facility] [place] [facility] [address] [address] Performing Lab: [facility] [place] [facility] [address] [address] [facility] WSTRN [facility]ENTERUSE [facility] BASIC METABOLIC PANEL (fasting) CHLORIDE [MOLES/VOLU ME] IN SERUM OR PLASMA 104 mmol/L 100 - 110 11/07 Specimen Type: SERUM No comment entered. Ordering Provider: Michelle MORRIS Report Released Date/Time: Sep 29, 2024 04:02 PM Reporting Lab: [facility] [place] [facility] [address] [address] Performing Lab: [facility]ENTERUSETS [facility] [address] [address] [facility]RL TRN [facility]ENTERUSE [facility] BASIC METABOLIC PANEL (fasting) CARBON DIOXIDE, TOTAL [MOLES/VOLU ME] IN SERUM OR PLASMA 21 meq/L 20 - 30 11/07 Specimen Type: SERUM No comment entered. Ordering Provider: Michelle MORRIS Report Released Date/Time: Sep 29, 2024 04:02 PM Reporting Lab: [facility] [place] [facility] [address] [address] Performing Lab: [facility] [address] [address] [facility] WSTRN [facility]ENTERUSE [facility] BASIC METABOLIC PANEL (fasting) CREATININE [MASS/VOLUM E] IN SERUM OR PLASMA 1.03 mg/dL 0.50 - 1.40 11/07 Specimen Type: SERUM No comment entered. Ordering Provider: Michelle MORRIS Report Released Date/Time: Sep 29, 2024 04:02 PM Reporting Lab: [facility] [facility] [address] [address] Performing Lab: [facility] [place] [facility] [address] [address] [facility] BASIC METABOLIC PANEL (fasting) GLOMERULAR FILTRATION RATE/1.73 SQ M.PREDICTED [VOLUME RATE/AREA] IN SERUM, PLASMA OR BLOOD BY CREATININE- BASED FORMULA (CKD-EPI 2020) 83 mL/min 60 11/07 Specimen Type: SERUM No comment entered. Ordering Provider: Michelle MORRIS Report Released Date/Time: Sep 29, 2024 04:02 PM Reporting Lab: [facility] [facility] [address] [address] Performing Lab: [facility] [facility] [address] [address] [facility] LIVER FUNCTION PROTEIN [MASS/VOLUM E] IN SERUM OR PLASMA 6.8 g/dL 6.0 - 8.3 11/07 Specimen Type: SERUM No comment entered. Ordering Provider: Michelle MORRIS Report Released Date/Time: Sep 29, 2024 04:02 PM Reporting Lab: [facility] [place] [facility] [address] [address] Performing Lab: [facility] [place] [facility] [address] [address] [facility] LIVER FUNCTION ALBUMIN [MASS/VOLUM E] IN SERUM OR PLASMA 4.0 g/dL 3.5 - 5.0 11/07 Specimen Type: SERUM No comment entered. Ordering Provider: Michelle MORRIS Report Released Date/Time: Sep 29, 2024 04:02 PM Reporting Lab: [facility] [facility] [address] [address] Performing Lab: [facility] [place] [facility] [address] [address] [facility] LIVER FUNCTION ALKALINE PHOSPHATASE [ENZYMATIC ACTIVITY/VO LUME] IN SERUM OR PLASMA 78 U/L 40 - 150 11/07 Specimen Type: SERUM No comment entered. Ordering Provider: Michelle MORRIS Report Released Date/Time: Sep 29, 2024 04:02 PM Reporting Lab: [facility] [place] [facility] [address] [address] Performing Lab: [facility] [place] [facility] [address] [address] [facility] LIVER FUNCTION ASPARTATE AMINOTRANSF ERASE [ENZYMATIC ACTIVITY/VO LUME] IN SERUM OR PLASMA 27 U/L 5 - 34 11/07 Specimen Type: SERUM No comment entered. Ordering Provider: Michelle MORRIS Report Released Date/Time: Sep 29, 2024 04:02 PM Reporting Lab: [facility] [address] [address] Performing Lab: [facility] [place] [facility] [address] [address] [facility] LIVER FUNCTION ALANINE AMINOTRANSF ERASE [ENZYMATIC ACTIVITY/VO LUME] IN SERUM OR PLASMA 35 U/L 11/07 Specimen Type: SERUM No comment entered. Ordering Provider: Michelle MORRIS Report Released Date/Time: Sep 29, 2024 04:02 PM Reporting Lab: [facility] [address] [address] Performing Lab: [facility] [place] [facility] [address] [address] [facility] LIVER FUNCTION BILIRUBIN.T OTAL [MASS/VOLUM E] IN SERUM OR PLASMA 0.6 mg/dL 0.2 - 1.2 11/07 Specimen Type: SERUM No comment entered. Ordering Provider: Michelle MORRIS Report Released Date/Time: Sep 29, 2024 04:02 PM Reporting Lab: [facility] [facility] [address] [address] Performing Lab: [facility] [facility] [address] [address] [facility] URIC ACID URATE [MASS/VOLUM E] IN SERUM OR PLASMA 4.6 mg/dL 3.5 - 7.2 11/07 Specimen Type: SERUM No comment entered. Ordering Provider: Michelle MORRIS Report Released Date/Time: Sep 29, 2024 04:02 PM Reporting Lab: [facility] [facility] [address] [address] Performing Lab: [facility] [place] [facility] [address] [address] [facility] HEPATITIS C ANTIBODY (HCV)-ARC HEPATITIS C VIRUS AB [PRESENCE] IN SERUM NON-RE ACTIVE 11/07 Specimen Type: SERUM Comment: Hep C Ab: No HCV antibody detected. If recent infection is suspected or other evidence suggests HCV infection, consider HCV nucleic acid testing Ordering Provider: Michelle MORRIS Report Released Date/Time: Sep 29, 2024 04:02 PM Reporting Lab: [facility] [facility] [address] [address] Performing Lab: [facility] [place] [facility] [address] [address] [facility] Vital Signs Combined list of inpatient and outpatient Vital Signs from Department of Defense and Veterans Affairs, ranging from 12 months to all on record, depending upon the facility. Vital Sign Value Date Comments Source SYSTOLIC BLOOD PRESSURE 126 12/30/19 25 14:55:28 [facility] [facility] DIASTOLIC BLOOD PRESSURE 84 025 14:55:28 [facility] [facility] PULSE OXIMETRY 97 12/30/2024 14:55:28 [facility] WEIGHT 255 12/30/2024 14:55:28 [facility] BMI 38 kg/m2 12/30/2024 14:55:28 [facility] PAIN 0 12/30/2024 14:55:28 [facility] TEMPERATURE 98.5 12/30/2024 14:55:28 [facility] PULSE 74 12/30/2024 14:55:28 [facility] RESPIRATION 16 12/30/2024 14:55:28 [facility] SYSTOLIC BLOOD PRESSURE 140 09/29/20 24 14:33:18 [facility] DIASTOLIC BLOOD PRESSURE 87 024 14:33:18 [facility] PULSE OXIMETRY 97 09/29/2024 14:33:18 [facility] WEIGHT 244 09/29/2024 14:33:18 [facility] BMI 36 kg/m2 09/29/2024 14:33:18 [facility] PAIN 0 09/29/2024 14:33:18 [facility] HEIGHT 69 09/29/2024 14:33:18 [facility] TEMPERATURE 98.6 09/29/2024 14:33:18 [facility] PULSE 77 09/29/2024 14[facility]33:18 [facility] RESPIRATION 20 09/29/2024 14:33:18 [facility] Encounters Combined list of: 1) Encounters from Department of Veterans Affairs facilities going backup to the last 18 months, not all VA inpatient encounters are included; 2) Encounters from the Department of Defense facilities going backup to 280 months. Location Location Details Encounter Type Encounter Number Reason For Visit Attending Provider ADM Date DC Date Status Disposition Source [facility] En[facility] [id number] 08/12 [facility] CASE MANAGEMENT [id number] Diagnos is: ICD-10- CM Z71.89 Other specifi ed curriculum counselor des WILLIAMS BARRIENTOS 09/19 [facility] En[facility] [id number] 09/19 [facility] En[facility] [id number] 09/23 [facility] OFFICE O/P NEW MOD 45 MIN [id number] Diagnos is: ICD-10- CM M10.9 Gout, unspeci ness ANBENITO LAKHANI 09/29 [facility] En[facility] [id number] 1.09/29 [facility] [place] [id number] 1. Diagnos is: ICD-10- CM H90.3 Sensori neural hearing loss, CRISTIANA Noguera 10/16 [facility] COMPRE OPH EXAM NEW PT 1/> [id number] 1. Diagnos is: ICD-10- CM H25.813 Combine d forms of age-rel ated catarac t, bilater al MERANTONIO,OSITO H B 10/23 [facility] FIT SPECTACLES BIFOCAL [id number] 1. Diagnos is: ICD-10- CM Z46.0 Encount er for fit/adj st of spectac les and contact lenses MERANTONIO,OSITO H B 10/23 [facility] OFF/OP EST MAY X REQ PHY/QHP [id number] Diagnos is: ICD-10- CM I10 Essenti al (primar y) hyperte Atif Matias 11/17 [facility] RPR&REFITG SPECT XCP APHAKIA [id number] Diagnos is: ICD-10- CM Z46.0 Encount er for fit/adj st of spectac les and contact lenses MAGI JADE 11/17 [facility] Out[facility] Encounter [id number] 12/03 [facility] En[facility] [id number] 12/30 [facility] OFFICE O/P EST LOW 20 MIN [id number] Diagnos is: ICD-10- CM I10 Essenti al (primar y) hyperte tanvir BENITO MORRIS 12/30 [facility] En[facility] [id number] 12/30 [facility] En[facility] [id number] 01/06 [facility] En[facility] [id number] 01/20 [facility] Social History Combined list of available smoking, tobacco, and other social history from Department of Defense and Veterans Affairs facilities. Social History Type Response Date Comment Sourc e Tobacco smoking status NHIS AR-TOBACCO FORMER USER 09/23/2024 [facility] History of tobacco use AR-TOBACCO QUIT 15 YRS OR MORE 09/23/2024 [facility] Advance Directives List of completed, amended, or rescinded Advance Directives on record at Department of [facility] facilities. An actual copy of the Directive is not included. Date Advance Directive Provider Source 09/29/2024 ADVANCE DIRECTIVE ABDULKADIR ASTORGA [facility]
--- OUTSIDE RECORDS SUMMARY | 2025-07-14 07:38 | XMS_ITS | Encounter Summary ---
Author Organization [facility] Address [address] [facility] [address] [place] [address] Phone Care Team Providers Care Mud Mixer Name Role Phone Olivier Moss MD Primary Care Provider [phone] Encounter Details Date Type Department Care Team (Late st Contact Info) Description 01/03/2022 Procedure Pass OR Admitting Dept - [facility] Department [address] [place] [address] Social History Tobacco Use Types Packs/Day Years Used Date Smoking Tobacco: Former Smokeless Tobacco: Never Comments:quit 1992 Alcohol Use Standard Drinks/Week Comments Yes 12 (1 standard drink = 0.6 oz pu re alcohol) Sex and Gender Information Value Date Recorded Sex Assigned at Not on file Legal Sex Male 9:44 PM EDT Gender Identity Not on file Sexual Orientation Not on file documented as of this encounter Plan of Treatment Not on file documented as of this encounter Visit Diagnoses Not on filedocumented in this encounter Care Teams Mud Mixer Relationship Specialty Start Date End Date Olivier Moss MD [email or web address] PCP - General Family Medicine 09/26/21 documented as of this encounter Additional Source Comments The information contained in this document represents components of the legal health record. It is not the complete legal health record.[facility]
--- OUTSIDE RECORDS SUMMARY | 2025-07-14 07:38 | XMS_ITS | Clinical Summary ---
Author Organization [facility] Address [address] [address] Phone Care Team Providers Care Spray I Painter Name Role Phone Olivier Moss MD Primary Care Provider [phone] Allergies Active Allergy Reactions Criticality Noted Date [...] LEVEL 11/22/2022 11/22/2021 POTASSIUM LEVEL 11/22/2022 11/22/2021 INFLUENZA VACCINE (#1) 2025 08/24/2021 COVID-19 VACCINE (3 - 2024-2 6 season) 2025 03/24/2021, 02/24/2021 RSV VACCINE (1 - 1-dose [...] this topic Medical Devices Implanted Type Area Packaging Materials Inspector Device Identifier Shelf Expiration Date Model / Serial / Lot Tray Tibial Knee [place] Aoy Lt Medial Size D - [id number] Implanted:Qty: 1 on 01/03/2022 by Markel Rodriguez MD at [facility] STANDARD Left: Knee [employer] 02/21/2031 [id number] / / [id number] Knee Bearing Medium Size 4 Component Tibial [place] Polyethylene Meniscal Anatomic Left - [id number] Implanted:Qty: 1 on 01/03/2022 by Markel Rodriguez MD at [facility] STANDARD Left: Knee [employer] 02/28/2026 [id number] / / [id number] Bone Cement Antibiotic Refobacin - [id number] Implanted:Qty: 1 on 01/03/2022 by Markel Rodriguez MD at [facility] Left: Knee DORIAN / [employer] BRISTOL SQUIBB 12/12/2023 [id number] / / [id number] Knee Implant Medium Component Femoral [place] Alloy Twin Pegged Cemented Partial - [id number] Implanted:Qty: 1 on 01/03/2022 by Markel Rodriguez MD at [facility] Left: Knee [employer] 04/16/2030 [id number] / / [id number] Procedures Procedure Name Priority Date/Time Associated Diagnosis Comments BASIC METABOLIC PANEL Routine 11/22/2021 7:08 AM EST Primary localized osteoarthrosis of left lower leg from Last 3 Months or Most Recently Relevant to Health Maintenance Results * (ABNORMAL) Basic metabolic panel (11/22/2021 7:08 AM EST) SODIUM 138 133 - 146 mmol/L [facility] CHLORIDE 100 96 - 108 mmol/L [facility] POTASSIUM 4.6 3.3 - 5.1 mmol/L [facility] Comment:Specimen slightly he molyzed, result may be falsely elevated. CO2 25 21 - 35 mmol/L [facility] BUN 18 6 - 19 mg/dL [facility] CREATININE 1.00 0.5 - 1.5 mg/dL [facility] GLUCOSE 106(H) 70 - 99 mg/dL [facility] CALCIUM 9.7 8.4 - 10.3 mg/dL [facility] EGFR 87 >59 mL/min/1.7 3m2 [facility] Comment:Estimated glomerular filtration rate calculated using the CKD-EPI refit equation. ANION GAP 18 10 - 20 mmol/L [facility] Blood 11/22/2021 7:08 AM EST 11/22/2021 7:11 AM EST us Markel Rodriguez MD LAB BLOOD ORDERABLES Final Re sult [facility] [address] [place] [address] from Last 3 Months or Most Recently Relevant to Health Maintenance Insurance [address] [place], [place] [address] POS HMO POS HMO POS HMO POS HMO POS HMO POS Member Subscriber Plan / Payer (Ef fective 2018-Present) Name:Frank Kaufman Relation to Subscriber:Other Relationship Name:EUNICE WEST Date of :1902 (Home) Address: [address] [place] [address] Payer ID:[id number] (NAIC) Type:HMO Address: [place] [id number] HMO POS HMO POS HMO POS Care Teams Spray I Painter Relationship Specialty Start Date End Date Olivier Moss MD [email or web address] PCP - General Family Medicine 09/26/21 Additional Source Comments The information contained in this document represents components of the legal health record. It is not the complete legal health record.[facility]
--- OUTSIDE RECORDS SUMMARY | 2025-07-14 07:38 | XMS_ITS | Encounter Summary ---
Author Organization [facility] Address [address] [facility] [address] [place] [address] Phone Care Team Providers Care Manager Lvn Name Role Phone Olivier Moss MD Primary Care Provider [phone] Olivier Moss MD Primary Care Provider [phone]- [phone] Encounter Details Date Type Department Care Team (Late st Contact Info) Description 09/14/2021 Ancillary Orders [facility],Outside Imaging [address] [place] [address] System, Provider Not In, [place] [address] Social History Tobacco Use Types Packs/Day Years Used Date Smoking Tobacco: Never Assessed Sex and Gender Information Value Date Recorded Sex Assigned at Not on file Legal Sex Male 9:44 PM EDT Gender Identity Not on file Sexual Orientation Not on file documented as of this encounter Plan of Treatment Not on file documented as of this encounter Results * XR Lower Extremity Outside (No Interpretation) (06/27/2021 12:00 AM EDT) Narrative SYSTEMGENERATED, DOCUMENTATION - 09/14/2021 11:44 AM EDT This study is for PACS storage only and not for interpretation. us Provider Not In System [facility] OUTSIDE IMAGING W /OUT INTERPRETATION Final Result documented in this encounter Visit Diagnoses Not on filedocumented in this encounter Additional Health Concerns Infection Onset Date Last Indicated Resolved Time COVID-19 12/31/2021 12/31/2021 01/02/2022 11:1 9 AM EST documented as of this encounter Care Teams Manager Lvn Relationship Specialty Start Date End Date Olivier Moss MD [email or web address] PCP - General 12/26/18 09/25/21 Olivier Moss MD [email or web address] PCP - General Family Medicine 09/26/21 documented as of this encounter Additional Source Comments The information contained in this document represents components of the legal health record. It is not the complete legal health record.[facility]
--- OUTSIDE RECORDS SUMMARY | 2025-07-14 07:38 | XMS_ITS | Encounter Summary ---
Author Organization [facility] Address [address] [facility] [address] [place] [address] Phone Care Team Providers Care Manager Of Operations Name Role Phone Olivier Moss MD Primary Care Provider [phone] Olivier Moss MD Primary Care Provider [phone]- [phone] Encounter Details Date Type Department Care Team (Late st Contact Info) Description 09/19/2021 Ancillary Orders [facility],Outside Imaging [address] [place] [address] System, Provider Not In, [facility] [address] [address] Social History Tobacco Use Types Packs/Day Years [...] * XR Lower Extremity Outside (No Interpretation) (09/19/2021 5:47 PM EST) Narrative SYSTEMGENERATED, DOCUMENTATION - 09/19/2021 5:47 PM EST This study is for PACS storage only and not for interpretation. us Provider Not In System PhD IMG OUTSIDE IMAGING W /OUT INTERPRETATION Final Result * XR Lower Extremity Outside (No Interpretation) (09/19/2021 5:46 PM EST) Narrative SYSTEMGENERATED, DOCUMENTATION - 09/19/2021 5:46 PM EST This study is for PACS storage only and not for interpretation. us Provider Not In System PhD IMG OUTSIDE IMAGING W /OUT INTERPRETATION Final Result documented in this encounter Visit Diagnoses Not on filedocumented in this encounter Additional Health Concerns Infection Onset Date Last Indicated Resolved Time COVID-19 12/31/2021 12/31/2021 01/02/2022 11:1 9 AM EST documented as of this encounter Care Teams Manager Of Operations Relationship Specialty Start Date End Date Olivier Moss MD [email or web address] PCP - General 12/26/18 09/25/21 Olivier Moss MD [email or web address] PCP - General Family Medicine 09/26/21 documented as of this encounter Additional Source Comments The information contained in this document represents components of the legal health record. It is not the complete legal health record.[facility]
--- OUTSIDE RECORDS SUMMARY | 2025-07-14 07:38 | XMS_ITS | Clinical Summary ---
Author Organization [facility] Address [address] [place] [address] Care Team Providers Care Clothes Shaker Name Role Phone Brigido Mossald Primary Care Provider Allergies No known active allergies Medications allopurinoL [...] Vaccines (1 of 2) 2013 COVID-19 Vaccine (1 - 2023-2 5 season) 2025 Influenza Vaccine (#1) 2025 HPV Vaccines Aged [...] patient's age to complete this topic [place] [address] [place] [address] [facility] Address: [address] [phone] Care Teams Clothes Shaker Relationship Specialty Start Date End Date Olivier Moss [address] [place] [phone] PCP - General Family Medicine 11/09/21
--- OUTSIDE RECORDS SUMMARY | 2025-07-14 07:38 | XMS_ITS | Encounter Summary ---
Author Organization [facility] Address [address] [place] [address] Phone Care Team Providers Care Veterinary Parasitologist Name Role Phone Olivier Moss MD Primary Care Provider [phone]- [phone] Olivier Moss MD Primary Care Provider [phone]- [phone] Encounter Details Date Type Department Care Team (Late st Contact Info) Description 08/17/2021 Procedure Pass [address] [address] Social History Tobacco Use Types Packs/Day Years [...] documented as of this encounter Care Teams Veterinary Parasitologist Relationship Specialty Start Date End Date Olivier Moss MD PCP - General 12/26/18 09/25/21 Olivier Moss MD [email or web address] PCP - General Family Medicine 09/26/21 documented as of this encounter Additional Source Comments The information contained in this document represents components of the legal health record. It is not the complete legal health record.[facility]
[2025-07-14] MEDS: Lidocaine HCl 1 % MPF 5 ML VIAL 10 ML SUBCUT (09:05)
--- NOTE | 2025-07-14 10:57 | W.PM.OPN ---
Operative Note Operative Note Date of Service: 07/14/25 Narrative: Preoperative diagnosis: Elevated PSA Postoperative diagnosis: Elevated PSA Procedure: 1. transrectal ultrasound measurement of prostate 2. transrectal ultrasound-guided pudendal nerve block 3. transrectal ultrasound-guided prostate biopsy 12 core Surgeon: Dr. Parveen Fernandez Anesthetic: 10cc 1% lidocaine Indications for procedure: Elevated PSA 7.65 Counselling: Technical aspects, risks and benefits of proposed procedure were discussed in full. All questions have been answered, written consent has been obtained and patient agrees to proceed. Procedure: The patient was brought into the procedure area and placed in a left lateral decubitus position. Patient identity confirmed. Perioperative antibiotics confirmed. Safety pause time out performed. YVON was performed to dilate rectal sphincter Iodine 10cc with 60 cc gel was placed per rectum to reduce infection risk using a catheter tip syringe. 8 Hz [place] rectal end-fire ultrasound probe was placed transrectally without difficulty. The prostate was visualized. Seminal vesicles were normal. Prostate margins were clearly demarcated. Bladder was seen superiorly. No cystic structures were noted Yes calcifications were noted at the surgical margin The prostate was otherwise heterogenous in nature The prostate was measured in 3 dimensions Prostatic Width: 3.5 cm Prostatic Height: 3.5 cm Urethral Length: 4.8 cm Total volume equals : 30 ml An ultrasound-guided pudendal nerve block was performed using a 22 gauge spinal needle in the sagittal plane. 4 cc of 1% lidocaine placed at the junction of each seminal vesicle and 2 cc placed at the apex of the prostate. A 12 core biopsy was performed with 6 cores each side using an 18 gauge prostate biopsy gun. Two cores each were taken at the prostate apex, mid and base on each side. Cores were spaced between lateral and medial aspects. Each core was examined as placed on specimen foam as part of quality coordinator to ensure a minimum 1 cm of length and minimal discontinuity. He tolerated the procedure well with minimal rectal bleeding. Blood pressure remained stable following procedure. He was able to ambulate to bathroom after 5 minutes. Printed instructions regarding antibiotic use and common adverse events from the procedure such as low-grade temperature, potential infection and bleeding were given. He understands to call the office or go to an emergency room should any of these events arise. Pathology: 12 core prostate biopsy. CPT code 70332: Transrectal ultrasound; this is a diagnostic test for evaluation of the prostate and surrounding structures, looking for abnormalities or suspicious areas worrisome for cancer CPT code 06019: Biopsy, prostate; needle or punch, single or multiple, any approach CPT code 28604: Ultrasonic guidance for needle placement (eg, biopsy, aspiration, injection, localization device), imaging supervision and interpretation
== END 2025-07-14 07:37 | disposition home or self-care (01) ==
LOC: HO.US 07:36
PROVIDERS: PCP Family Medicine; Visit Provider Urology
DX: R97.20 Elevated prostate specific antigen [PSA] (principal)
CPT/HCPCS: 55700; 76942; 88305; 88344; J2003

== ENCOUNTER → 2025-07-14 07:36 | Outpatient (BNV) | payer BC, SELFPAY | PROVIDERS: PCP Family Medicine; Visit Provider Urology | DX: R97.20 Elevated prostate specific antigen [PSA] (principal) | CPT/HCPCS: 55700; 76872; 76942 ==

== ENCOUNTER 2025-07-23 13:32 | Outpatient (AMB) | payer BC, SELFPAY ==
--- NOTE | 2025-07-23 13:33 | A.OFFVIS_ITS ---
Intake Visit Reasons: Prostate biopsy results Intake Note: Patient is present for prostate biopsy results Urology Rx:Allopurinol,levofloxacin Blood Thinners:none Imaging completed: none LAST PVR 79 mls Day Care Provider Required: No Accompanied by: Self / Same As Patient Allergies No Known Allergies Allergy (Verified 07/23/25 13:35) HPI Comments Details: Frank is a pleasant male. He is a patient of Dr Moss. He is seen for the following urologic conditions - elevated PSA Telemedicine Evaluation 15 min Consultation [employer] Mally Video Prostate cancer grade group 2, low volume, clinically confined Gl 3+4 pT1c TRUS volume 30 cc Histologic type: Prostatic adenocarcinoma, acinar type Histologic grade: Manjinder score: 7 (3+4) (left base lateral 4% and left mid medial 20%), 6 (3+3) (left base medial 65%) Number cores positive: 3 Total number of cores: 14 % of tissue involved: 5% Periprostatic fat inv.: Not identified Seminal vesicle inv.: Not identified Perineural inv.: Not identified Lymphatic and/or vascular invasion: Not identified Elevated PSA Recent check with PCP Minimal urinary symptoms YVON with mild firmness PSA - 05/06 7.9 Given age and PSA would recommend prostate biopsy Review of Systems Const All systems reviewed & are unremarkable except as noted in HPI and below Reports no additional complaints Resp Reports no additional complaints GI Reports no additional complaints Reports as per HPI Musc Reports no additional complaints Physical Exam Telemedicine evaluation Appropriate responses Regular breathing rate and rhythm HEENT Head: Yes normal to inspection Ears: hearing grossly normal bilaterally Eyes General: appearance normal, both eyes and all related structures Neck Neck: Yes normal visual inspection Chest Chest palpation & inspection: normal inspection of the chest Resp Effort & Inspection: normal respiratory effort and able to speak in complete sentences Telehealth Telehealth Telehealth Platform: [employer] Location of provider rendering services: practice address Location of patient: address on file Patient Identification confirmed using: Name, : Yes Telehealth method: video Patient verbally consented to treatment: Yes Patient verbally consented to billing insurance company: Yes Patient informed of any privacy concerns related to visit: Yes Minutes spent on Phone/Video with Pt.: 15 Assessment & Plan Assessment & Plan (1) Hormone resistant prostate cancer: Code(s): C61 - Malignant neoplasm of prostate; Z19.2 - Hormone resistant malignancy status Category: Medical Plan Prostate MRI Prolaris 4 week follow-up Orders: Orders MR Prostate wo/w con 2 Weeks C61 - Malignant neoplasm of prostate, Z19.2 - Hormone resistant malignancy status Patient Instructions: This note is constructed using voice recognition software. While every effort has been made to ensure accuracy field crop ii farmworker errors may have been included. Imaging studies, laboratory and physical exam results were discussed and reviewed in detail. No major barriers to patient understanding were identified. An opportunity to ask questions regarding the treatment plan was provided. All questions were answered. The patient expressed understanding and agreement with the above treatment plan. The patient is aware they should contact our office by phone for worsening of their current condition or the appearance of new urologic symptoms. Compliance is encouraged with any medications and followup testing that is ordered. It is a privilege to participate in the urologic care of your patient. If you have any questions or concerns regarding treatment for the above conditions, or other urologic issues, please do not hesitate to contact me. The office telephone contact is [phone]. Sincerely, Dr Parveen Fernandez MD, [facility] - Urology Compassionate Specialist Care for the Genitourinary System Coding Level of Care Code Tele Est Pt Level 4 (76776) Complex EM visit Add On G2211 Diagnoses Hormone resistant prostate cancer C61; Z19.2
--- OUTSIDE RECORDS SUMMARY | 2025-07-23 17:26 | XMS_ITS | Encounter Summary ---
Author Organization [facility] Address [address] [place] [address] Phone Care Team Providers Care Ensemble Member Name Role Phone Olivier Moss MD Primary Care Provider [phone] Olivier Moss MD Primary Care Provider +1- [phone] Encounter Details Date Type Department Care Team (Late st Contact Info) Description 08/17/2021 Procedure Pass [address] [address] Social History Tobacco Use Types Packs/Day Years [...] documented as of this encounter Care Teams Ensemble Member Relationship Specialty Start Date End Date Olivier Moss MD [email or web address] PCP - General 12/26/18 09/25/21 Olivier Moss MD PCP - General Family Medicine 09/26/21 documented as of this encounter Additional Source Comments The information contained in this document represents components of the legal health record. It is not the complete legal health record.[facility]
--- OUTSIDE RECORDS SUMMARY | 2025-07-23 17:26 | XMS_ITS | Encounter Summary ---
Author Organization [facility] Address [address] [facility] [address] [place] [place] [address] Phone Care Team Providers Care Career Development Facilitator Name Role Phone Olivier Moss MD Primary Care Provider [phone]- [phone] Encounter Details Date Type Department Care Team (Late st Contact Info) Description 01/03/2022 Procedure Pass OR Admitting Dept - [facility] Department [address] [place] [address] Social History Tobacco Use Types Packs/Day Years [...] on filedocumented in this encounter Care Teams Career Development Facilitator Relationship Specialty Start Date End Date Olivier Moss MD [email or web address] PCP - General Family Medicine 09/26/21 documented as of this encounter Additional Source Comments The information contained in this document represents components of the legal health record. It is not the complete legal health record.[facility]
--- OUTSIDE RECORDS SUMMARY | 2025-07-23 17:26 | XMS_ITS | Encounter Summary ---
Author Organization [facility] Address [address] [facility] [address] [place] [address] Phone Care Team Providers Care Physical Science Aide Name Role Phone Olivier Moss MD Primary Care Provider [phone]- [phone] Olivier Moss MD Primary Care Provider [phone]- [phone] Encounter Details Date Type Department Care Team (Late st Contact Info) Description 09/19/2021 Ancillary Orders [facility],Outside Imaging [address] [place] [address] System, Provider Not In, [facility] [address] [address] Social History Tobacco Use Types Packs/Day Years [...] documented as of this encounter Care Teams Physical Science Aide Relationship Specialty Start Date End Date Olivier Moss MD PCP - General 12/26/18 09/25/21 Olivier Moss MD [email or web address] PCP - General Family Medicine 09/26/21 documented as of this encounter Additional Source Comments The information contained in this document represents components of the legal health record. It is not the complete legal health record.[facility]
--- OUTSIDE RECORDS SUMMARY | 2025-07-23 17:26 | XMS_ITS | Encounter Summary ---
Author Organization [facility] Address [address] [facility] [address] [place] [address] Phone Care Team Providers Care Hot Mill Shearer Name Role Phone Olivier Moss MD Primary Care Provider [phone]- [phone] Olivier Moss MD Primary Care Provider [phone]- [phone] Encounter Details Date Type Department Care Team (Late st Contact Info) Description 09/14/2021 Ancillary Orders [facility],Outside Imaging [address] [place] [address] System, Provider Not In, [place] [address] Social History Tobacco Use Types Packs/Day Years [...] documented as of this encounter Care Teams Hot Mill Shearer Relationship Specialty Start Date End Date Olivier Moss MD [email or web address] PCP - General 12/26/18 09/25/21 Olivier Moss MD [email or web address] PCP - General Family Medicine 09/26/21 documented as of this encounter Additional Source Comments The information contained in this document represents components of the legal health record. It is not the complete legal health record.[facility]
--- OUTSIDE RECORDS SUMMARY | 2025-07-23 17:26 | XMS_ITS | Clinical Summary ---
Author Organization [facility] Address [address] [place] [address] Care Team Providers Care Azure Architect Name Role Phone Brigido Mossald Primary Care Provider [phone] Allergies No known active allergies Medications allopurinoL [...] patient's age to complete this topic Insurance [place] [address] Care Teams Azure Architect Relationship Specialty Start Date End Date Olivier Moss [address] [place] [phone] PCP - General Family Medicine 11/09/21
--- OUTSIDE RECORDS SUMMARY | 2025-07-23 17:26 | XMS_ITS | Clinical Summary ---
Author Organization [facility] Address [address] [address] Phone Care Team Providers Care Orthopedic Designer Name Role Phone Olivier Moss MD Primary Care Provider [phone]- [phone] Allergies Active Allergy Reactions Criticality Noted Date [...] this topic Medical Devices Implanted Type Area Head Of Marketing Analytics Device Identifier Shelf Expiration Date Model / Serial / Lot Tray Tibial Knee [place] Aoy Lt Medial Size D - [id number] Implanted:Qty: 1 on 01/03/2022 by Markel Rodriguez MD at [facility] STANDARD Left: Knee [employer] 02/21/2031 [id number] / / [id number] Knee Bearing Medium Size 4 Component Tibial [place] Polyethylene Meniscal Anatomic Left - [id number] Implanted:Qty: 1 on 01/03/2022 by Markel Rodriguez MD at [facility] STANDARD Left: Knee [employer] 02/28/2026 [id number] / / [id number] Bone Cement Antibiotic Refobacin - [id number] Implanted:Qty: 1 on 01/03/2022 by Markel Rodriguez MD at [facility] Left: Knee DORIAN / [employer] BRISTOL SQUIBB 12/12/2023 [id number] / / [id number] Knee Implant Medium Component Femoral [place] Alloy Twin Pegged Cemented Partial - [id number] Implanted:Qty: 1 on 01/03/2022 by Markel Rodriguez MD at [facility] Left: Knee [employer] 04/16/2030 [id number] / / [id number] Procedures Procedure Name Priority Date/Time Associated Diagnosis Comments BASIC METABOLIC PANEL Routine 11/22/2021 7:08 AM EST Primary localized osteoarthrosis of left lower leg from Last 3 Months or Most Recently Relevant to Health Maintenance Results * (ABNORMAL) Basic metabolic panel (11/22/2021 7:08 AM EST) SODIUM 138 133 - 146 mmol/L [facility] CHLORIDE 100 96 - 108 mmol/L [facility] POTASSIUM 4.6 3.3 - 5.1 mmol/L [facility] Comment:Specimen slightly he molyzed, result may be falsely elevated. CO2 25 21 - 35 mmol/L [facility] BUN 18 6 - 19 mg/dL [facility] CREATININE 1.00 0.5 - 1.5 mg/dL [facility] GLUCOSE 106(H) 70 - 99 mg/dL [facility] CALCIUM 9.7 8.4 - 10.3 mg/dL [facility] EGFR 87 >59 mL/min/1.7 3m2 [facility] Comment:Estimated glomerular filtration rate calculated using the CKD-EPI refit equation. ANION GAP 18 10 - 20 mmol/L [facility] Blood 11/22/2021 7:08 AM EST 11/22/2021 7:11 AM EST us Markel Rodriguez MD LAB BLOOD ORDERABLES Final Re sult [facility] [address] [place] [address] from Last 3 Months or Most Recently Relevant to Health Maintenance Insurance [address] [place], [place] [address]O POS HMO POS HMO POS HMO POS HMO POS HMO POS Member Subscriber Plan / Payer (Ef fective 2018-Present) Name:Frank Kaufman Relation to Subscriber:Other Relationship Name:EUNICE WEST Date of :1902 (Home) Address: [address] [place] [address] Payer ID:[id number] (NAIC) Type:HMO Address: [place] [id number] HMO POS HMO POS HMO POS Care Teams Orthopedic Designer Relationship Specialty Start Date End Date Olivier Moss MD [email or web address] PCP - General Family Medicine 09/26/21 Additional Source Comments The information contained in this document represents components of the legal health record. It is not the complete legal health record.[facility]
== END 2025-07-23 14:57 | disposition home or self-care (01) ==
LOC: HO.HUSH 13:32
PROVIDERS: PCP Family Medicine; Visit Provider Urology
DX: C61 Malignant neoplasm of prostate (principal); Z19.2 Hormone resistant malignancy status
CPT/HCPCS: 99214

== ENCOUNTER 2025-08-07 14:20 | Outpatient (REF) | payer BC, SELFPAY ==
[2025-08-07 15:33] LABS: Anion Gap 11 (12-20); Blood Urea Nitrogen 15 mg/dL (9-16); Calcium 9.4 mg/dL (8.4-10.2); Carbon Dioxide 30 mmol/L (22-29); Chloride 105 mmol/L (96-108); Estimated Glomerular Filt Rate 59; Potassium 4.8 mmol/L (3.3-5.1); Sodium 141 mmol/L (135-145)
[2025-08-07 15:34] LABS: Blood Urea Nitrogen 15 mg/dL (9-16)
== END 2025-08-07 14:21 | disposition home or self-care (01) ==
LOC: HO.LAB 14:20
PROVIDERS: PCP Family Medicine; Visit Provider Urology
DX: C61 Malignant neoplasm of prostate (principal); R97.20 Elevated prostate specific antigen [PSA]; Z19.2 Hormone resistant malignancy status
CPT/HCPCS: 36415; 80048; 84520

== ENCOUNTER → 2025-08-10 08:26 | Outpatient (BNV) | payer BC, SELFPAY | PROVIDERS: PCP Family Medicine; Visit Provider Radiology Diagnostic Radiology | DX: C61 Malignant neoplasm of prostate (principal) | CPT/HCPCS: 72197; 76377 ==

== ENCOUNTER 2025-08-10 08:32 | Outpatient (REF) | payer BC, SELFPAY ==
--- NOTE | ~2025-08-10 | MR_ITS ---
EXAMINATION: MR PROSTATE WITHOUT THEN WITH IV CONTRAST, MR EXAM UNLISTED HISTORY: C61 - Malignant neoplasm of prostate TECHNIQUE: 1.5T body coil survey of the pelvis was performed. Phase array coil imaging of the prostate was performed in multiplanar high resolution axial, coronal, sagittal fast spin echo T2 and axial T1 weighted imaging sequences. Axial diffusion imaging at intermediate and high field performed with ADC mapping. Next, 10 mL Gadavist was given by intravenous infusion, and dynamic axial imaging performed. 3-D reconstructions and post-processing were performed on an independent workstation by the radiologist for biopsy planning using image fusion. COMPARISON: There are no prior studies available for comparison. CLINICAL DATA: Most recent PSA: 7.9 ng/mL on 05/06/2025. PSA Density: 0.34 ng/mL squared Prostate Biopsy: Positive biopsy on 07/14/2025 with a [place] score of 3+4 = 7. FINDINGS: Prostate size: 3.6 x 3.7 x 3.3 cm. Calculated prostate volume is 22.9 mL. Hemorrhage: There is T1 hyperintensity in the right peripheral zone at the base compatible with hemorrhage from recent biopsy. Transitional Zone: There is mild heterogeneous nodular hypertrophy of the transitional zone. Peripheral Zone: There is an area of interest in the peripheral zone as described below: Area of interest #1: Location: Left posteromedial peripheral zone at the base extending to the mid gland measuring 8 mm (series 7, images 19-21). DWI PI-RADS v2.1 score: 4 T2 PI-RADS v2.1 score: 4 DCE PI-RADS v2.1 score: + Overall PI-RADS v2.1 score: 4 Capsular contact: yes Extracapsular extension: None Seminal vesicle invasion: None Neurovascular bundle involvement: None Seminal Vesicles/Ejaculatory Ducts: Symmetric and normal in signal and caliber. Pelvic Lymph Nodes: No obturator or internal iliac lymph nodes meeting size criteria for adenopathy. Marrow Signal: Normal marrow signal and enhancement without focal lesion identified. MR/MR Prostate wo/w con IMPRESSION: Area of interest in the left posteromedial peripheral zone at the base as described, suspicious for clinically significant prostate carcinoma. PI-RADS 4: High (clinically significant cancer is likely to be present) PI-RADS Assessment Categories PI-RADS 1: Very low (clinically significant cancer is highly unlikely to be present) PI-RADS 2: Low (clinically significant cancer is unlikely to be present) PI-RADS 3: Intermediate (the presence of clinically significant cancer is equivocal) PI-RADS 4: High (clinically significant cancer is likely to be present) PI-RADS 5: Very high (clinically significant cancer is highly likely to be present) [employer]. MR Prostate Imaging Reporting and Data System version 2.1. [email or web address] Electronically signed by: Baljit Kim MD 08/10/2025 10:13 AM EDT
--- NOTE | ~2025-08-10 | MR_ITS ---
EXAMINATION: MR PROSTATE WITHOUT THEN WITH IV CONTRAST, MR EXAM UNLISTED HISTORY: C61 - Malignant neoplasm of prostate TECHNIQUE: 1.5T body coil survey of the pelvis was performed. Phase array coil imaging of the prostate was performed in multiplanar high resolution axial, coronal, sagittal fast spin echo T2 and axial T1 weighted imaging sequences. Axial diffusion imaging at intermediate and high field performed with ADC mapping. Next, 10 mL Gadavist was given by intravenous infusion, and dynamic axial imaging performed. 3-D reconstructions and post-processing were performed on an independent workstation by the radiologist for biopsy planning using image fusion. COMPARISON: There are no prior studies available for comparison. CLINICAL DATA: Most recent PSA: 7.9 ng/mL on 05/06/2025. PSA Density: 0.34 ng/mL squared Prostate Biopsy: Positive biopsy on 07/14/2025 with a Manjinder score of 3+4 = 7. FINDINGS: Prostate size: 3.6 x 3.7 x 3.3 cm. Calculated prostate volume is 22.9 mL. Hemorrhage: There is T1 hyperintensity in the right peripheral zone at the base compatible with hemorrhage from recent biopsy. Transitional Zone: There is mild heterogeneous nodular hypertrophy of the transitional zone. Peripheral Zone: There is an area of interest in the peripheral zone as described below: Area of interest #1: Location: Left posteromedial peripheral zone at the base extending to the mid gland measuring 8 mm (series 7, images 19-21). DWI PI-RADS v2.1 score: 4 T2 PI-RADS v2.1 score: 4 DCE PI-RADS v2.1 score: + Overall PI-RADS v2.1 score: 4 Capsular contact: yes Extracapsular extension: None Seminal vesicle invasion: None Neurovascular bundle involvement: None Seminal Vesicles/Ejaculatory Ducts: Symmetric and normal in signal and caliber. Pelvic Lymph Nodes: No obturator or internal iliac lymph nodes meeting size criteria for adenopathy. Marrow Signal: Normal marrow signal and enhancement without focal lesion identified. MR/MR CAD IMPRESSION: Area of interest in the left posteromedial peripheral zone at the base as described, suspicious for clinically significant prostate carcinoma. PI-RADS 4: High (clinically significant cancer is likely to be present) PI-RADS Assessment Categories PI-RADS 1: Very low (clinically significant cancer is highly unlikely to be present) PI-RADS 2: Low (clinically significant cancer is unlikely to be present) PI-RADS 3: Intermediate (the presence of clinically significant cancer is equivocal) PI-RADS 4: High (clinically significant cancer is likely to be present) PI-RADS 5: Very high (clinically significant cancer is highly likely to be present) [employer]. MR Prostate Imaging Reporting and Data System version 2.1. [email or web address]/ Electronically signed by: Baljit Kim MD 08/10/2025 10:13 AM EDT
--- OUTSIDE RECORDS SUMMARY | 2025-08-10 08:55 | XMS_ITS | Clinical Summary ---
Author Organization [facility] Address [address] [place] [address] Care Team Providers Care Silk Spotter Name Role Phone Brigido Mossald Primary Care Provider [phone] Allergies No known active allergies Medications allopurinoL [...] patient's age to complete this topic [place] [address] [place] [address] Care Teams Silk Spotter Relationship Specialty Start Date End Date Olivier Moss [address] [place] [phone] PCP - General Family Medicine 11/09/21
--- OUTSIDE RECORDS SUMMARY | 2025-08-10 08:55 | XMS_ITS | Encounter Summary ---
Author Organization [facility] Address [address] [place] [address] Phone Care Team Providers Care Packing Floor Worker Name Role Phone Olivier Moss MD Primary Care Provider [phone] Olivier Moss MD Primary Care Provider [phone]- [phone] Encounter Details Date Type Department Care Team (Late st Contact Info) Description 08/17/2021 Procedure Pass [address] [address] Social History Tobacco Use Types Packs/Day Years [...] documented as of this encounter Care Teams Packing Floor Worker Relationship Specialty Start Date End Date Olivier Moss MD [email or web address] PCP - General 12/26/18 09/25/21 Olivier Moss MD [email or web address] PCP - General Family Medicine 09/26/21 documented as of this encounter Additional Source Comments The information contained in this document represents components of the legal health record. It is not the complete legal health record.[facility]
--- OUTSIDE RECORDS SUMMARY | 2025-08-10 08:55 | XMS_ITS | Encounter Summary ---
Author Organization [facility] Address [address] [facility] [address] [place] [address] Phone Care Team Providers Care Oven Worker Name Role Phone Olivier Moss MD Primary Care Provider [phone] Olivier Moss MD Primary Care Provider [phone]- [phone] Encounter Details Date Type Department Care Team (Late st Contact Info) Description 09/19/2021 Ancillary Orders [facility],Outside Imaging [address] [place] [address] System, Provider Not In, [facility] [address] [address] Social History Tobacco Use Types Packs/Day Years [...] documented as of this encounter Care Teams Oven Worker Relationship Specialty Start Date End Date Olivier Moss MD [email or web address] PCP - General 12/26/18 09/25/21 Olivier Moss MD [email or web address] PCP - General Family Medicine 09/26/21 documented as of this encounter Additional Source Comments The information contained in this document represents components of the legal health record. It is not the complete legal health record.[facility]
--- OUTSIDE RECORDS SUMMARY | 2025-08-10 08:55 | XMS_ITS | Encounter Summary ---
Author Organization [facility] Address [address] [facility] [address] [place] [address] Phone Care Team Providers Care Figure Refinisher And Repairer Name Role Phone Olivier Moss MD Primary Care Provider [phone]- [phone] Encounter Details Date Type Department Care Team (Late st Contact Info) Description 01/03/2022 Procedure Pass OR Admitting Dept - [facility] Department [address] [place] [address] Social History Tobacco Use Types Packs/Day Years [...] on filedocumented in this encounter Care Teams Figure Refinisher And Repairer Relationship Specialty Start Date End Date Olivier Moss MD [email or web address] PCP - General Family Medicine 09/26/21 documented as of this encounter Additional Source Comments The information contained in this document represents components of the legal health record. It is not the complete legal health record.[facility]
--- OUTSIDE RECORDS SUMMARY | 2025-08-10 08:55 | XMS_ITS | Clinical Summary ---
Author Organization [facility] Address [address] [address] Phone Care Team Providers Care Bible Reader Name Role Phone Olivier Moss MD Primary Care Provider [phone] Allergies Active Allergy Reactions Criticality Noted Date [...] this topic Medical Devices Implanted Type Area Ammunition Storage Superintendent Device Identifier Shelf Expiration Date Model / Serial / Lot Tray Tibial Knee [place] Aoy Lt Medial Size D - [id number] Implanted:Qty: 1 on 01/03/2022 by Markel Rodriguez MD at [facility] STANDARD Left: Knee [employer] 02/21/2031 [id number] / / [id number] Knee Bearing Medium Size 4 Component Tibial [place] Polyethylene Meniscal Anatomic Left - [id number] Implanted:Qty: 1 on 01/03/2022 by Markel Rodriguez MD at [facility] STANDARD Left: Knee [employer] 02/28/2026 [id number] / / [id number] Bone Cement Antibiotic Refobacin - [id number] Implanted:Qty: 1 on 01/03/2022 by Markel Rodriguez MD at [facility] Left: Knee DORIAN / [employer] 12/12/2023 [id number] / / [id number] Knee Implant Medium Component Femoral [place] Alloy Twin Pegged Cemented Partial - [id number] Implanted:Qty: 1 on 01/03/2022 by Markel Rodriguez MD at [facility] Left: Knee [employer] 04/16/2030 [id number] / / [id number] Procedures Procedure Name Priority Date/Time Associated Diagnosis Comments BASIC METABOLIC PANEL Routine 11/22/2021 7:08 AM EST Primary localized osteoarthrosis of left lower leg from Last 3 Months or Most Recently Relevant to Health Maintenance Results * (ABNORMAL) Basic metabolic panel (11/22/2021 7:08 AM EST) SODIUM 138 133 - 146 mmol/L [facility] CHLORIDE 100 96 - 108 mmol/L [facility] POTASSIUM 4.6 3.3 - 5.1 mmol/L [facility] Comment:Specimen slightly he molyzed, result may be falsely elevated. CO2 25 21 - 35 mmol/L [facility] BUN 18 6 - 19 mg/dL [facility] CREATININE 1.00 0.5 - 1.5 mg/dL [facility] GLUCOSE 106(H) 70 - 99 mg/dL [facility] CALCIUM 9.7 8.4 - 10.3 mg/dL [facility] EGFR 87 >59 mL/min/1.7 3m2 [facility] Comment:Estimated glomerular filtration rate calculated using the CKD-EPI refit equation. ANION GAP 18 10 - 20 mmol/L [facility] Blood 11/22/2021 7:08 AM EST 11/22/2021 7:11 AM EST us Markel Rodriguze MD LAB BLOOD ORDERABLES Final Re sult [facility] [address] [place] [address] from Last 3 Months or Most Recently Relevant to Health Maintenance Insurance [address] [place], [place] [address] POS HMO POS HMO POS HMO POS HMO POS HMO POS Member Subscriber Plan / Payer (Ef fective 2018-Present) Name:Frank Kaufman Relation to Subscriber:Other Relationship Name:EUNICE WEST Date of :1902 (Home) Address: [address] [place] [address] Payer ID:[id number] (NAIC) Type:HMO Address: [place] [id number] HMO POS HMO POS HMO POS Care Teams Bible Reader Relationship Specialty Start Date End Date Olivier Moss MD [email or web address] PCP - General Family Medicine 09/26/21 Additional Source Comments The information contained in this document represents components of the legal health record. It is not the complete legal health record.[facility]
--- OUTSIDE RECORDS SUMMARY | 2025-08-10 08:55 | XMS_ITS | Encounter Summary ---
Author Organization [facility] Address [address] [facility] [address] [place] [address] Phone Care Team Providers Care Business Machine Mechanic Name Role Phone Olivier Moss MD Primary Care Provider +1- [phone] Olivier Moss MD Primary Care Provider +1- [phone] Encounter Details Date Type Department Care Team (Late st Contact Info) Description 09/14/2021 Ancillary Orders [facility],Outside Imaging [address] [place] [address] System, Provider [place] In, [place] [address] Social History Tobacco Use Types Packs/Day Years [...] documented as of this encounter Care Teams Business Machine Mechanic Relationship Specialty Start Date End Date Olivier Moss MD [email or web address] PCP - General 12/26/18 09/25/21 Olivier Moss MD [email or web address] PCP - General Family Medicine 09/26/21 documented as of this encounter Additional Source Comments The information contained in this document represents components of the legal health record. It is not the complete legal health record.[facility]
== END 2025-08-10 08:33 | disposition home or self-care (01) ==
LOC: HO.MRI 08:32
PROVIDERS: PCP Family Medicine; Visit Provider Urology
DX: C61 Malignant neoplasm of prostate (principal); Z19.2 Hormone resistant malignancy status; R97.20 Elevated prostate specific antigen [PSA]
CPT/HCPCS: 72197; 76377; A9585

== ENCOUNTER 2025-09-03 09:33 | Outpatient (AMB) | payer BC, SELFPAY ==
--- NOTE | 2025-09-03 09:37 | A.OFFVIS_ITS ---
Intake Visit Reasons: prolaris/MRI results Intake Note: Patient is present for follow up Urology Rx:Allopurinol, Blood Thinners:none Imaging completed: MRI 08/10/2025 Metal Hanger Required: No Accompanied by: Spouse Allergies No Known Allergies Allergy (Verified 07/23/25 13:35) HPI Comments Details: Frank is a pleasant male. He is a patient of Dr Moss. He is seen for the following urologic conditions - elevated PSA Printed copies of pathology and imaging provided Highlighted ultra low volume, favorable intermediate, organ confined disease Discussed treatment options Stress suitability for active surveillance Recommended literature Start finasteride 4 month follow-up PSA office Comorbidities - prediabetic, CPAP for CHRISTIAN, hypertension Prostate cancer grade group 2, low volume, organ confined Gl 3+4 pT1c TRUS volume 30 cc PSA at diagnosis 7.9 MRI - organ confined 25 g, 8 mm PI-RADS 4 left base lesion Prolaris - cell cycle score 3.2 recommended active surveillance Histologic type: Prostatic adenocarcinoma, acinar type Histologic grade: [place] score: 7 (3+4) (left base lateral 4% and left mid medial 20%), 6 (3+3) (left base medial 65%) Number cores positive: 3 Total number of cores: 14 % of tissue involved: 5% Periprostatic fat inv.: Not identified Seminal vesicle inv.: Not identified Perineural inv.: Not identified Lymphatic and/or vascular invasion: Not identified [facility], [facility] Medical History (Updated 09/03/25 @ 10:25 by Parveen Fernandez MD) Elevated PSA Hormone resistant prostate cancer Review of Systems Const Denies chills and Denies fever(s) Card Reports no additional complaints and Denies syncope Resp Denies cough GI Denies abdominal pain and Denies heartburn Reports as per HPI and Denies change in libido Neuro Denies syncope Psych Denies change in libido Endo Denies change in libido Physical Exam Const General: cooperative, healthy appearing, comfortable and no acute distress Orientation/consciousness: patient oriented x3 HEENT Face and sinus: Yes normal facial exam Mouth: moist mucous membranes Neck Neck: Yes normal visual inspection, Yes full ROM and Yes trachea midline Chest Chest palpation & inspection: normal inspection of the chest Resp Effort & Inspection: normal respiratory effort, able to speak in complete sentences and no respiratory distress GI Inspection: Yes normal to inspection Back/Spine/Pelvis Cervical Spine: normal cervical lordosis Thoracic/Lumbar Spine: thoracic and lumbar spine normal to inspection Skin General skin exam: no rashes or lesions noted Neuro General: patient oriented x3, gait normal, tone normal and moves all extremities Extrem General: Yes normal to inspection and Yes capillary refill normal Assessment & Plan Assessment & Plan (1) Hormone sensitive prostate cancer: Code(s): C61 - Malignant neoplasm of prostate; Z19.1 - Hormone sensitive malignancy status Category: Medical Plan Four month follow-up PSA office Orders: Orders PSA,Total (Free>4and<10) 4 Months C61 - Malignant neoplasm of prostate, Z19.1 - Hormone sensitive malignancy status Medications: New finasteride 5 mg PO DAILY 90 tabs 1RF 90 days C61 - Malignant neoplasm of prostate, Z19.1 - Hormone sensitive malignancy status Patient Instructions: This note is constructed using voice recognition software. While every effort has been made to ensure accuracy restoration technician errors may have been included. Imaging studies, laboratory and physical exam results were discussed and reviewed in detail. No major barriers to patient understanding were identified. An opportunity to ask questions regarding the treatment plan was provided. All questions were answered. The patient expressed understanding and agreement with the above treatment plan. The patient is aware they should contact our office by phone for worsening of their current condition or the appearance of new urologic symptoms. Compliance is encouraged with any medications and followup testing that is ordered. It is a privilege to participate in the urologic care of your patient. If you have any questions or concerns regarding treatment for the above conditions, or other urologic issues, please do not hesitate to contact me. The office telephone contact is [phone]. Sincerely, Dr Parveen Fernandez MD, [facility] - Urology Compassionate Specialist Care for the Genitourinary System Coding Level of Care Code Est Pt Level 4 (30408) Complex EM visit Add On G2211 Diagnoses Hormone sensitive prostate cancer C61; Z19.1
--- OUTSIDE RECORDS SUMMARY | 2025-09-03 10:53 | XMS_ITS | Clinical Summary ---
Author Organization Located Within [facility] Address [address] [address] Phone Care Team Providers Care Rn Paralegal Name Role Phone Olivier Moss MD Primary Care Provider [phone]- [phone] Allergies Active Allergy Reactions Criticality Noted Date [...] 01/02/2022 10:27 AM EST Plan of Treatment Upcoming Encounters Date Type Department Care Team (Late st Contact Info) Description 09/09/2025 2:30 PM EDT Office Visit Department of Urology [address] [facility] 7th [place] [address] Jonathan Hoffman MD [address] [facility] [address] [place] [address] [email or web address] Health Maintenance Due Date Last Done Comments [...] this topic Medical Devices Implanted Type Area Overhead Garage Door Hanger Device Identifier Shelf Expiration Date Model / Serial / Lot Tray Tibial Knee [place] Mes[place] Aoy Lt Medial Size D - [id number] Implanted:Qty: 1 on 01/03/2022 by Markel Rodriguez MD at [facility] STANDARD Left: Knee [employer] 02/21/2031 [id number] / / [id number] Knee Bearing Medium Size 4 Component Tibial [place] Polyethylene Meniscal Anatomic Left - [id number] Implanted:Qty: 1 on 01/03/2022 by Markel Rodriguez MD at [facility] STANDARD Left: Knee [employer] 02/28/2026 [id number] / / [id number] Bone Cement Antibiotic Refobacin - [id number] Implanted:Qty: 1 on 01/03/2022 by Markel Rodriguez MD at [facility] Left: Knee DORIAN / DIV [employer] 12/12/2023 [id number] / / [id number] Knee Implant Medium Component Femoral [place] Alloy Twin Pegged Cemented Partial - [id number] Implanted:Qty: 1 on 01/03/2022 by Markel Rodriguez MD at [facility] Left: Knee [employer] 04/16/2030 [id number] / / [id number] Procedures Procedure Name Priority Date/Time Associated Diagnosis Comments BASIC METABOLIC PANEL Routine 11/22/2021 7:08 AM EST Primary localized osteoarthrosis of left lower leg from Last 3 Months or Most Recently Relevant to Health Maintenance Results * (ABNORMAL) Basic metabolic panel (11/22/2021 7:08 AM EST) SODIUM 138 133 - 146 mmol/L [facility] CHLORIDE 100 96 - 108 mmol/L [facility] POTASSIUM 4.6 3.3 - 5.1 mmol/L [facility] Comment:Specimen slightly he molyzed, result may be falsely elevated. CO2 25 21 - 35 mmol/L [facility] BUN 18 6 - 19 mg/dL [facility] CREATININE 1.00 0.5 - 1.5 mg/dL [facility] GLUCOSE 106(H) 70 - 99 mg/dL [facility] CALCIUM 9.7 8.4 - 10.3 mg/dL [facility] EGFR 87 >59 mL/min/1.7 3m2 [facility] Comment:Estimated glomerular filtration rate calculated using the CKD-EPI refit equation. ANION GAP 18 10 - 20 mmol/L [facility] Blood 11/22/2021 7:08 AM EST 11/22/2021 7:11 AM EST us Markel Rodriguez MD LAB BLOOD ORDERABLES Final Re sult [facility] [address] [place] [address] from Last 3 Months or Most Recently Relevant to Health Maintenance Insurance [facility] [place] [address] [facility] Care Teams Rn Paralegal Relationship Specialty Start Date End Date Olivier Moss MD [email or web address] PCP - General Family Medicine 09/26/21 Additional Source Comments The information contained in this document represents components of the legal health record. It is not the complete legal health record.[facility]
--- OUTSIDE RECORDS SUMMARY | 2025-09-03 10:53 | XMS_ITS | Encounter Summary ---
Author Organization [facility] Address [address] [place] [address] Phone Care Team Providers Care Tile Helper Name Role Phone Olivier Moss MD Primary Care Provider [phone] Encounter Details Date Type Department Care Team (Late Contact Info) Description 01/03/2022 Procedure Pass OR Admitting Dept - Virtual Department [address] [place] [id number] Social History Tobacco Use Types Packs/Day Years [...] as of this encounter Plan of Treatment Upcoming Encounters Date Type Department Care Team (Late Contact Info) Description 09/09/2025 2:30 PM EDT Office Visit Department of Urology [address] [address] Jonathan Hoffman MD [address] [place] [address] [address] [place] [address] [email or web address] documented as of this encounter Visit Diagnoses Not on filedocumented in this encounter Care Teams Tile Helper Relationship Specialty Start Date End Date Olivier Moss MD [email or web address] PCP - General Family Medicine 09/26/21 documented as of this encounter Additional Source Comments The information contained in this document represents components of the legal health record. It is not the complete legal health record.[facility]
--- OUTSIDE RECORDS SUMMARY | 2025-09-03 10:53 | XMS_ITS | Encounter Summary ---
Author Organization [facility] Address [address] [place] [address] [place] [address] Phone Care Team Providers Care Cad Developer Name Role Phone Olivier Moss MD Primary Care Provider [phone] Olivier Moss MD Primary Care Provider [phone] Encounter Details Date Type Department Care Team (Late Contact Info) Description 09/14/2021 Ancillary Orders [facility],Outside Imaging [address] [place] [address] System, Provider Not In, PhD [address] [address] Social History Tobacco Use Types Packs/Day Years [...] EDT Office Visit Department of Urology [address] [facility] 7th [place] [address] Jonathan Hoffman MD [address] [place] [address] [address] [place] [address] [email or web address] documented as of this encounter Results * [...] Infection Onset Date Last Indicated Resolved Time COVID-12/31/2021 12/31/2021 01/02/2022 11:1 9 AM EST documented as of this encounter Care Teams Cad Developer Relationship Specialty Start Date End Date Olivier Moss MD [email or web address] PCP - General 12/26/18 09/25/21 Olivier Moss MD [email or web address] PCP - General Family Medicine 09/26/21 documented as of this encounter Additional Source Comments The information contained in this document represents components of the legal health record. It is not the complete legal health record.[facility]
--- OUTSIDE RECORDS SUMMARY | 2025-09-03 10:53 | XMS_ITS | Encounter Summary ---
Author Organization [facility] Address [address] [place] [address] [place] [phone] Phone Care Team Providers Care Wood Bucker Name Role Phone Olivier Moss MD Primary Care Provider [phone] Olivier Moss MD Primary Care Provider [phone]- [phone] Encounter Details Date Type Department Care Team (Late st Contact Info) Description 08/17/2021 Procedure Pass [facility], [address] [address] Social History Tobacco Use Types Packs/Day Years [...] EDT Office Visit Department of Urology [address] [facility] 7th [place] [address] Jonathan Hoffman MD [address] [place] [address] [address] [place] [address] [email or web address] documented as of this encounter Visit Diagnoses Not on filedocumented in this encounter Additional Health Concerns Infection Onset Date Last Indicated Resolved Time COVID-19 12/31/2021 12/31/2021 01/02/2022 11:1 9 AM EST documented as of this encounter Care Teams Wood Bucker Relationship Specialty Start Date End Date Olivier Moss MD [email or web address] PCP - General 12/26/18 09/25/21 Olivier Moss MD [email or web address] PCP - General Family Medicine 09/26/21 documented as of this encounter Additional Source Comments The information contained in this document represents components of the legal health record. It is not the complete legal health record.[facility]
--- OUTSIDE RECORDS SUMMARY | 2025-09-03 10:53 | XMS_ITS | Clinical Summary ---
Author Organization [facility] Address [address] [place] [address] Care Team Providers Care Business Development Director Name Role Phone Brigido Mossald Primary Care Provider [phone] Allergies No known active allergies Medications allopurinoL [...] patient's age to complete this topic Insurance [place] [address] [facility] Address: [address] [address] Care Teams Business Development Director Relationship Specialty Start Date End Date Olivier Moss [address] [place] [phone] PCP - General Family Medicine 11/09/21
--- OUTSIDE RECORDS SUMMARY | 2025-09-03 10:53 | XMS_ITS | Encounter Summary ---
Author Organization [facility] Address [address] [place] [address] Phone Care Team Providers Care Range Management Specialist Name Role Phone Olivier Moss MD Primary Care Provider [phone] Olivier Moss MD Primary Care Provider [phone] Encounter Details Date Type Department Care Team (Late Contact Info) Description 09/19/2021 Ancillary Orders [facility],Outside Imaging [address] [place] [address] System, Provider Not In, PhD [address] [address] Social History Tobacco Use Types Packs/Day Years [...] EDT Office Visit Department of Urology [address] [facility] 7th [place] [address] Jonathan Hoffman MD [address] [place] [address] [address] [place] [address] [email or web address] documented as of this encounter Results [...] documented as of this encounter Care Teams Range Management Specialist Relationship Specialty Start Date End Date Olivier Moss MD PCP - General 12/26/18 09/25/21 Olivier Moss MD PCP - General Family Medicine 09/26/21 documented as of this encounter Additional Source Comments The information contained in this document represents components of the legal health record. It is not the complete legal health record.[facility]
== END 2025-09-03 10:44 | disposition home or self-care (01) ==
LOC: HO.HUSH 09:33
PROVIDERS: PCP Family Medicine; Visit Provider Urology
DX: C61 Malignant neoplasm of prostate (principal); Z19.1 Hormone sensitive malignancy status
CPT/HCPCS: 99214